=== PATIENT | female | born 1990 | race African-American/Black ===

== ENCOUNTER 2017-01-19 14:59 | Emergency (ER) | payer MEDICAID ==
[2017-01-19] MEDS ORDERED: Sodium Chloride 0.9% 1,000 ML IV ONE (15:30)
--- NOTE | 2017-01-19 15:30 | EDM.PDOC ---
ED HPI GENERAL MEDICAL PROBLEM - General Chief Complaint: Back Pain or Injury Stated Complaint: LOWER BACK PAIN/VOMITING Time Seen by Provider: 01/19/17 15:29 Source of Information: Reports: Patient History Limitations: Reports: No Limitations - History of Present Illness INITIAL COMMENTS - FREE TEXT/NARRATIVE: History of present illness: [26-year-old female comes in complaining of back pain. Indicates that she's had low-grade temperatures at home and it is radiating around to the front. Patient indicates that she has had this sensation in the past when she has had an advanced bladder infection comes to be evaluated today.] Review of systems: As per history of present illness and below otherwise all systems reviewed and negative. Past medical history: As per history of present illness and as reviewed below otherwise noncontributory. Surgical history: As per history of present illness and as reviewed below otherwise noncontributory. Social history: No reported history of drug or alcohol abuse. Family history: As per history of present illness and as reviewed below otherwise noncontributory. Physical exam: HEENT: Atraumatic, normocephalic, pupils reactive, negative for conjunctival pallor or scleral icterus, mucous membranes moist, throat clear, neck supple, nontender, trachea midline. Lungs: Clear to auscultation, breath sounds equal bilaterally, chest nontender. Heart: S1S2, regular, negative for clicks, rubs, or JVD. Abdomen: Soft, nondistended, nontender. Negative for masses or hepatosplenomegaly. Negative for costovertebral tenderness. Pelvis: Stable nontender. Genitourinary: Deferred. Rectal: Deferred. Extremities: Atraumatic, negative for cords or calf pain. Neurovascular unremarkable. Neuro: Awake, alert, oriented. Cranial nerves II through XII unremarkable. Cerebellum unremarkable. Motor and sensory unremarkable throughout. Exam nonfocal. Global assessment is benign save the subjective complaint as noted in history of present illness. Urine is positive and patient requests a more extensive workup secondary to concerns of miscarriage Diagnostics: [UA, CBC, CMP urine hCG] Therapeutics: [Saline lock] Impression: [First trimester with lower pelvic pain] Plan: [Follow-up with DIETARY MANAGER] Definitive disposition and diagnosis as appropriate pending reevaluation and review of above. Low Back Pain Pain Score (Numeric/FACES): 5 - Related Data Allergies Allergy/AdvReac Type Severity Reaction Status Date / Time No Known Allergies Allergy Verified 01/19/17 15:14 Home Meds: Home Meds . [No Known Home Meds] 01/19/17 [History] Past Medical History - Past Health History Medical/Surgical History: Denies Medical/Surgical History Social & Family History - Family History Family Medical History: Noncontributory - Tobacco Use Smoking Status *Q: Current Every Day Smoker Years of Tobacco use: 9 Packs/Tins Daily: 1 - Recreational Drug Use Recreational Drug Use: Yes Drug Use in Last 12 Months: Yes Recreational Drug Type: Reports: Marijuana/Hashish ED ROS GENERAL - Review of Systems Review Of Systems: See Below (See history of present illness) ED EXAM, GENERAL - Physical Exam Exam: See Below (See history of present illness) Course - Vital Signs Last Recorded V/S: Last Vital Signs Temp 36.8 C 01/19/17 17:48 Pulse 88 01/19/17 17:48 Resp 16 01/19/17 17:48 BP 115/68 01/19/17 17:48 Pulse Ox 99 01/19/17 17:48 - Orders/Labs/Meds Orders: Active Orders 24 hr Category Date Time Status OB 1st Tri Sgl 1st Gest [US] Stat Exams 01/19/17 16:16 Taken Labs: Laboratory Tests 01/19/17 01/19/17 01/19/17 Range/Units 15:10 15:10 16:06 WBC 8.71 (4.0-11.0) K/uL RBC 4.60 (4.30-5.90) M/uL Hgb 13.0 (12.0-16.0) g/dL Hct 37.2 (36.0-46.0) % MCV 80.9 (80.0-98.0) fL MCH 28.3 (27.0-32.0) pg MCHC 34.9 (31.0-37.0) g/dL RDW Std Deviation 45.7 (28.0-62.0) fl RDW Coeff of Toya 16 H (11.0-15.0) % Plt Count 308 (150-400) K/uL MPV 8.40 (7.40-12.00) fL Neut % (Auto) 65.7 (48.0-80.0) % Lymph % (Auto) 23.8 (16.0-40.0) % Meagher % (Auto) 8.5 (0.0-15.0) % Eos % (Auto) 1.8 (0.0-7.0) % Baso % (Auto) 0.2 (0.0-1.5) % Neut # (Auto) 5.7 (1.4-5.7) K/uL Lymph # (Auto) 2.1 (0.6-2.4) K/uL Meagher # (Auto) 0.7 (0.0-0.8) K/uL Eos # (Auto) 0.2 (0.0-0.7) K/uL Baso # (Auto) 0.0 (0.0-0.1) K/uL Nucleated RBC % 0.0 /100WBC Nucleated RBCs # 0 K/uL Sodium (136-146) mmol/L Potassium (3.5-5.1) mmol/L Chloride (98-110) mmol/L Carbon Dioxide (21-31) mmol/L BUN (6.0-23.0) mg/dL Creatinine (0.6-1.5) mg/dL Est Cr Clr Drug Dosing mL/min Estimated GFR (MDRD) ml/min Glucose (60-110) mg/dL Calcium (8.8-10.8) mg/dL Total Bilirubin (0.1-1.5) mg/dL AST (5-40) IU/L ALT (8-54) IU/L Alkaline Phosphatase (40-150) Total Protein (6.0-8.0) g/dL Albumin (3.5-5.0) g/dL Globulin (2.0-3.5) g/dL Albumin/Globulin Ratio (1.3-2.8) HCG, Quant mIU/mL Urine Color YELLOW Urine Appearance CLEAR Urine pH 7.0 (5.0-8.0) Ur Specific [place] 1.015 (1.001-1.035) Urine Protein NEGATIVE (NEGATIVE) mg/dL Urine Glucose (UA) NEGATIVE (NEGATIVE) mg/dL Urine Ketones NEGATIVE (NEGATIVE) mg/dL Urine Occult Blood NEGATIVE (NEGATIVE) Urine Nitrite NEGATIVE (NEGATIVE) Urine Bilirubin NEGATIVE (NEGATIVE) Urine Urobilinogen 1.0 (<2.0) EU/dL Ur Leukocyte Esterase TRACE (NEGATIVE) Urine RBC 0-1 (0-2/HPF) Urine WBC 0-2 (0-5/HPF) Ur Epithelial Cells OCCASIONAL (NONE-FEW) Urine Bacteria RARE (NEGATIVE) Urine HCG, Qual POSITIVE (NEGATIVE) Blood Type 01/19/17 01/19/17 01/19/17 Range/Units 16:06 16:06 16:06 WBC (4.0-11.0) K/uL RBC (4.30-5.90) M/uL Hgb (12.0-16.0) g/dL Hct (36.0-46.0) % MCV (80.0-98.0) fL MCH (27.0-32.0) pg MCHC (31.0-37.0) g/dL RDW Std Deviation (28.0-62.0) fl RDW Coeff of Toya (11.0-15.0) % Plt Count (150-400) K/uL MPV (7.40-12.00) fL Neut % (Auto) (48.0-80.0) % Lymph % (Auto) (16.0-40.0) % Meagher % (Auto) (0.0-15.0) % Eos % (Auto) (0.0-7.0) % Baso % (Auto) (0.0-1.5) % Neut # (Auto) (1.4-5.7) K/uL Lymph # (Auto) (0.6-2.4) K/uL Meagher # (Auto) (0.0-0.8) K/uL Eos # (Auto) (0.0-0.7) K/uL Baso # (Auto) (0.0-0.1) K/uL Nucleated RBC % /100WBC Nucleated RBCs # K/uL Sodium 135 L (136-146) mmol/L Potassium 3.9 (3.5-5.1) mmol/L Chloride 104 (98-110) mmol/L Carbon Dioxide 22 (21-31) mmol/L BUN 6 (6.0-23.0) mg/dL Creatinine 0.7 (0.6-1.5) mg/dL Est Cr Clr Drug Dosing 104.24 mL/min Estimated GFR (MDRD) > 60.0 ml/min Glucose 93 (60-110) mg/dL Calcium 9.2 (8.8-10.8) mg/dL Total Bilirubin 0.7 (0.1-1.5) mg/dL AST 12 (5-40) IU/L ALT 10 (8-54) IU/L Alkaline Phosphatase 48 (40-150) Total Protein 6.8 (6.0-8.0) g/dL Albumin 3.7 (3.5-5.0) g/dL Globulin 3.1 (2.0-3.5) g/dL Albumin/Globulin Ratio 1.2 L (1.3-2.8) HCG, Quant 13416.9 mIU/mL Urine Color Urine Appearance Urine pH (5.0-8.0) Ur Specific [place] (1.001-1.035) Urine Protein (NEGATIVE) mg/dL Urine Glucose (UA) (NEGATIVE) mg/dL Urine Ketones (NEGATIVE) mg/dL Urine Occult Blood (NEGATIVE) Urine Nitrite (NEGATIVE) Urine Bilirubin (NEGATIVE) Urine Urobilinogen (<2.0) EU/dL Ur Leukocyte Esterase (NEGATIVE) Urine RBC (0-2/HPF) Urine WBC (0-5/HPF) Ur Epithelial Cells (NONE-FEW) Urine Bacteria (NEGATIVE) Urine HCG, Qual (NEGATIVE) Blood Type A POSITIVE Meds: Medications Discontinued Medications Generic Name Dose Route Start Last Admin Trade Name Jarretq PRN Reason Stop Dose Admin Sodium Chloride 1,000 mls @ 999 mls/hr 01/19/17 15:30 01/19/17 16:09 Normal Saline IV 01/19/17 16:30 999 mls/hr STAT ONE Administration Departure - Departure Time of Disposition: 18:34 Disposition: Home, Self-Care 01 Condition: Good Clinical Impression: Pelvic pain - Discharge Information Referrals: PCP,None [Primary Care Provider] - Forms: ED Department Discharge Additional Instructions: The following information is given to patients seen in the emergency department who are being discharged to home. This information is to outline your options for follow-up care. We provide all patients seen in our emergency department with a follow-up referral. The need for follow-up, as well as the timing and circumstances, are variable depending upon the specifics of your emergency department visit. If you don't have a primary care physician on staff, we will provide you with a referral. We always advise you to contact your personal physician following an emergency department visit to inform them of the circumstance of the visit and for follow-up with them and/or the need for any referrals to a consulting specialist. The emergency department will also refer you to a specialist when appropriate. This referral assures that you have the opportunity for follow-up care with a specialist. All of these measure are taken in an effort to provide you with optimal care, which includes your follow-up. Under all circumstances we always encourage you to contact your private physician who remains a resource for coordinating your care. When calling for follow-up care, please make the office aware that this follow-up is from your recent emergency room visit. If for any reason you are refused follow-up, please contact the [facility] Emergency Department at and asked to speak to the emergency department charge nurse. Follow-up with DIETARY MANAGER Return to ED as needed as discussed [facility] Primary Care - Women's Health [address] [place] [address] - My Orders Last 24 Hours: My Active Orders 01/19/17 16:16 OB 1st Tri Sgl 1st Gest [US] Stat - Assessment/Plan Last 24 Hours: My Active Orders 01/19/17 16:16 OB 1st Tri Sgl 1st Gest [US] Stat
[2017-01-19 16:36] LABS: CHLORIDE,CL 104 mmol/L (98-110); SODIUM,NA 135 mmol/L (136-146)
--- NOTE | 2017-01-20 10:40 | US ---
EXAM DATE: 01/19/17 PATIENT'S AGE: 26 Patient: ADRIANA CHO Facility: [place], [place] Site . Site : 1990 Study: US OB Pelvis [id number] 5:56:07 PM Ordering Physician: Doctor Vaughn Final Report: INDICATION: Pelvic and back pain, unknown LMP. TECHNIQUE: Ultrasound OB pelvis transvaginal. Real-time coello-scale imaging of the pelvis was performed. COMPARISON: None FINDINGS: Sonographic imaging demonstrates a single living intrauterine gestation. The embryo demonstrates a regular cardiac rate measuring 170 beats per minute. The embryo`s crown rump length measurement of 3.3 cm corresponds to a gestational age of 10 weeks 1 day with a sonographic due date of August 16, 2017. Maternal cervical length is 4.4 cm. There is a normal appearing yolk sac. There are no gross abnormalities noted within the embryo at this early state of development. The placenta has not yet developed. The gestational sac has a normal appearance and there is no evidence of a perigestational hemorrhage. The amount of fluid within the sac appears appropriate for gestational age. The cervix is closed. The myometrium appears normal. The ovaries are of normal size. There are no suspicious fluid collections noted in the cul-de-sac. IMPRESSION: Single viable intrauterine with estimated gestational age of 10 weeks 1 day and sonographic due date of August 16, 2017. No abnormalities seen. Dictated by Cristel Michaels MD @ Jan 19 2017 6:13PM (Electronic Signature) Report Signed by Proxy. WM
== END 2017-01-19 18:40 | disposition home or self-care (01) ==
LOC: MW.ED 14:59
DX: O99.89 Other specified diseases and conditions complicating pregnancy, childbirth and the puerperium (principal); R10.2 Pelvic and perineal pain; O99.331 Smoking (tobacco) complicating pregnancy, first trimester; F17.210 Nicotine dependence, cigarettes, uncomplicated; Z3A.10 10 weeks gestation of pregnancy
CPT/HCPCS: 36415; 76801; 80053; 81001; 81025; 84702; 85025; 86900; 86901; 96360; 99284; J7040; 99282

== ENCOUNTER 2017-03-02 11:19 | Emergency (ER) | payer MEDICAID ==
--- NOTE | 2017-03-02 11:25 | EDM.PDOC ---
ED HPI GENERAL MEDICAL PROBLEM - General Stated Complaint: ABD PAIN(16WKS ) Time Seen by Provider: 03/02/17 11:25 Source of Information: Reports: Patient History Limitations: Reports: No Limitations - History of Present Illness INITIAL COMMENTS - FREE TEXT/NARRATIVE: HISTORY AND PHYSICAL: []26-year-old black female who is 16 weeks states that she's been having lower abdominal cramping since last night History of Present Illness: []Patient is a smoker and drinks "a lot of caffeine" She did walk here to several blocks this morning. 2 weeks ago had some spotting. Denies any spotting today is in the room today Review of Systems: As per history of present illness and below otherwise all systems reviewed and negative. Past medical history: As per history of present illness and as reviewed below otherwise noncontributory. Surgical history: As per history of present illness and as reviewed below otherwise noncontributory. Social history: No reported history of drug or alcohol abuse. Family history: As per history of present illness and as reviewed below otherwise noncontributory. Physical exam: Alert and oriented female answering questions appropriately she is not short of breath when speaking. HEENT: Atraumatic, normocehpalic, pupils reactive, negative for conjunctival pallor or scleral icterus, mucous membranes moist, throat clear, neck supple, nontender, trachea midline. Lungs: Clear to auscultation, breath sounds equal bilaterally, chest non tender. Heart: S1S2, regular, negative for clicks, rubs, or JVD. Abdomen: Soft, nontender. Negative for masses or hepatossplenmegaly. Negative for costovertebral tenderness. Pelvis: Stable nontender. Genitourinary: Deferred. Rectal: Deferred Extremities: Atraumatic, negative for cords or calf pain. Neurovascular unremarkable. Neuro: Awake, alert, oriented. Cranial nerves II through XII unremarkable. Cerebellum unremarkable. Motor and sensory unremarkable throughout. Exam nonfocal. Ultrasound report was reviewed and discussed with patient and her . No signs of any separation or bleeding noted. Heart rate 150s on ultrasound. Placenta anterior and low. Diagnostics: [OB ultrasound second trimester] Therapeutics: []Doppler study heart tones 154 Impression: []Intermittent cramping Plan: []Follow-up with your POWER SYSTEMS ENGINEER tomorrow Claire Eisenberg nurse ball thread machine tender [facility] Primary Care - Women's Health [address] [place] [id number] Please states that she was in the emergency department and would need to be evaluated Definitive disposition and diagnosis as appropriate pending reevaluation and review of above. Onset: Gradual Duration: Hour(s): Location: Reports: Pelvis Quality: Reports: Same as Previous Episode Severity: Mild Improves with: Reports: None Worsens with: Reports: None Lower Abdominal Pain Score (Numeric/FACES): 8 - Related Data Allergies Allergy/AdvReac Type Severity Reaction Status Date / Time No Known Allergies Allergy Verified 01/19/17 15:14 Home Meds: Home Meds . [No Known Home Meds] 01/19/17 [History] Past Medical History - Past Health History Medical/Surgical History: Denies Medical/Surgical History Social & Family History - Family History Family Medical History: Noncontributory - Tobacco Use Smoking Status *Q: Current Every Day Smoker Years of Tobacco use: 9 Packs/Tins Daily: 1 - Recreational Drug Use Recreational Drug Use: Yes Drug Use in Last 12 Months: Yes Recreational Drug Type: Reports: Marijuana/Hashish ED ROS GENERAL - Review of Systems Review Of Systems: ROS reveals no pertinent complaints other than HPI. ED EXAM, GI/ABD - Physical Exam Exam: See Below (See dictation) Course - Vital Signs Last Recorded V/S: Last Vital Signs Temp 36.2 C 03/02/17 11:28 Pulse 130 H 03/02/17 11:28 Resp 20 03/02/17 11:28 BP 154/90 H 03/02/17 11:28 Pulse Ox 96 03/02/17 11:28 - Orders/Labs/Meds Orders: Active Orders 24 hr Category Date Time Status OB 2 Or 3 Tri Sgl 1st Gest [US] Stat Exams 03/02/17 11:38 Taken CULTURE URINE [RM] Stat Lab 03/02/17 11:37 Received Labs: Laboratory Tests 03/02/17 Range/Units 11:37 Urine Color YELLOW Urine Appearance CLEAR Urine pH 6.0 (5.0-8.0) Ur Specific [place] 1.015 (1.001-1.035) Urine Protein NEGATIVE (NEGATIVE) mg/dL Urine Glucose (UA) NEGATIVE (NEGATIVE) mg/dL Urine Ketones NEGATIVE (NEGATIVE) mg/dL Urine Occult Blood NEGATIVE (NEGATIVE) Urine Nitrite NEGATIVE (NEGATIVE) Urine Bilirubin NEGATIVE (NEGATIVE) Urine Urobilinogen 0.2 (<2.0) EU/dL Ur Leukocyte Esterase MODERATE (NEGATIVE) Urine RBC NONE SEEN (0-2/HPF) Urine WBC 4-8 (0-5/HPF) Ur Epithelial Cells 2-4 (NONE-FEW) Urine Bacteria FEW (NEGATIVE) Urine Mucus MODERATE (NONE-MOD) Departure - Departure Time of Disposition: 12:40 Disposition: Home, Self-Care 01 Condition: Good Clinical Impression: Abdominal cramping - Discharge Information Referrals: PCP,None [Primary Care Provider] - Additional Instructions: The following information is given to patients seen in the emergency department who are being discharged to home. This information is to outline your options for follow-up care. We provide all patients seen in our emergency department with a follow-up referral. The need for follow-up, as well as the timing and circumstances, are variable depending upon the specifics of your emergency department visit. If you don't have a primary care physician on staff, we will provide you with a referral. We always advise you to contact your personal physician following an emergency department visit to inform them of the circumstance of the visit and for follow-up with them and/or the need for any referrals to a consulting specialist. The emergency department will also refer you to a specialist when appropriate. This referral assures that you have the opportunity for followup care with a specialist. All of these measure are taken in an effort to provide you with optimal care, which includes your followup. Under all circumstances we always encourage you to contact your private physician who remains a resource for coordinating your care. When calling for followup care, please make the office aware that this follow-up is from your recent emergency room visit. If for any reason you are refused follow-up, please contact the [facility] emergency department at and asked to speak to the emergency department charge nurse. Follow-up with Mallorie Eisenberg nurse ball thread machine tender tomorrow [facility] Primary Care - Women's Health [address] [place] [phone] call for an appointment - My Orders Last 24 Hours: My Active Orders 03/02/17 11:37 CULTURE URINE [RM] Stat 03/02/17 11:38 OB 2 Or 3 Tri Sgl 1st Gest [US] Stat - Assessment/Plan Last 24 Hours: My Active Orders 03/02/17 11:37 CULTURE URINE [RM] Stat 03/02/17 11:38 OB 2 Or 3 Tri Sgl 1st Gest [US] Stat
--- NOTE | 2017-03-03 16:31 | US ---
EXAM DATE: 03/02/17 PATIENT'S AGE: 26 Patient: ADRIANA CHO Facility: [place], [place] Site . Site : 1990 Study: US OB Pelvis [id number] 12:05:19 PM Ordering Physician: Doctor Vaughn Final Report: Indication: Abdominal pain. Findings: Single live intrauterine gestation is noted with an estimated weight of 146 g based on a biparietal diameter of 3.4 cm, head circumference of 12.2 cm, abdominal circumference of 10.1 cm and femur length of 2.1 cm. cardiac activity is noted at 150 beats per minute. The placenta is anterior and low lying. The leading edge of the placenta to the cervix was not measured. The cervical length is 3.7 cm. Impression: Single live intrauterine gestation with low lying anterior placenta. Dictated by Cristel Acevedo MD @ Mar 02 2017 12:28PM (Electronic Signature) Report Signed by Proxy. WM
== END 2017-03-02 12:48 | disposition home or self-care (01) ==
LOC: MW.ED 11:19
DX: O99.89 Other specified diseases and conditions complicating pregnancy, childbirth and the puerperium (principal); R10.30 Lower abdominal pain, unspecified; O99.332 Smoking (tobacco) complicating pregnancy, second trimester; F17.210 Nicotine dependence, cigarettes, uncomplicated; Z3A.16 16 weeks gestation of pregnancy
CPT/HCPCS: 76805; 76805-26; 81001; 87086; 99284; 99284-25

== ENCOUNTER 2017-07-07 12:02 | Emergency (ER) | payer MEDICAID ==
[2017-07-07] MEDS ORDERED: Sodium Chloride 0.9% 1,000 ML IV ONE (12:16)
--- NOTE | 2017-07-07 12:17 | EDM.PDOC ---
ED HPI GENERAL MEDICAL PROBLEM - General Chief Complaint: General Stated Complaint: WEEK SPELL(33 WKS ) Time Seen by Provider: 07/07/17 12:03 Source of Information: Reports: Patient History Limitations: Reports: No Limitations - History of Present Illness INITIAL COMMENTS - FREE TEXT/NARRATIVE: HISTORY AND PHYSICAL: History of present illness: Patient is a 26-year-old female who presents to the emergency room with complaints of feeling weak, nauseated and near syncopal. She states that she has had these symptoms for several months during this , currently 33 weeks . She reports she has told her primary care/OBGYN of her complaints and concerns and was encouraged to increase the frequency of her meals and that they should be high in protein. Patient states she has made these changes to her diet is still has intermittent episodes of this. She denies any fever, chills, chest pain or shortness of breath. Denies any abdominal pain, cramping, vaginal bleeding, diarrhea or constipation. Reports she is eating and drinking appropriately. Falls, trauma or injuries. G 3, P2, Primary OBGYN is Claire Acevedo. Reports her previous appointments have been normal. Review of systems: As per history of present illness and below otherwise all systems reviewed and negative. Past medical history: As per history of present illness and as reviewed below otherwise noncontributory. Surgical history: As per history of present illness and as reviewed below otherwise noncontributory. Social history: No reported history of drug or alcohol abuse. Family history: As per history of present illness and as reviewed below otherwise noncontributory. Physical exam: General: Developed and well-nourished 26-year-old -[place]ian female. Alert and oriented. Nontoxic appearing and in no acute distress. HEENT: Atraumatic, normocephalic, pupils equal and reactive bilaterally, negative for conjunctival pallor or scleral icterus, mucous membranes moist, throat clear, neck supple, nontender, trachea midline. No drooling or trismus noted. No meningeal signs Lungs: Clear to auscultation, breath sounds equal bilaterally, chest nontender. Heart: S1S2, regular rate and rhythm without overt murmur Abdomen: Soft, nondistended, 33 weeks , nontender. Negative for masses or hepatosplenomegaly. Negative for costovertebral tenderness. Pelvis: Stable nontender. Genitourinary: Deferred. Rectal: Deferred. Skin: Intact, warm, dry. No lesions or rashes noted. Extremities: Atraumatic, negative for cords or calf pain. Neurovascular unremarkable. Neuro: Awake, alert, oriented. Cranial nerves II through XII unremarkable. Cerebellum unremarkable. Motor and sensory unremarkable throughout. Exam nonfocal. Notes: OB is down here to perform an NST. Claire Acevedo, Research Pharmacist, was informed of patients arrival - patients primary OB. 1240: NST was completed, reactive at this time with FHT of 140, moderate variability. She is cleared from OB per Claire Acevedo/Clay Lisa RN, OB. Labs are within normal limits. EKG is normal. VSS. She states she feels improvement. She will follow up with her PCP.Denies any further questions or concerns at this time. Diagnostics: CBC, CMP, UA, EKG, OB evaluation Therapeutics: Normal saline Impression: Third trimester Near Syncope Plan: 1. Drink plenty of fluids throughout the day. Avoid caffeinated products. Eat frequent small meals throughout the day. 2. Take frequent breaks throughout the day. Avoid over strenuous activity. 3. Follow up with your OBGYN as you have scheduled, or within the next 1-2 days. Return to the ED as needed and as discussed. Definitive disposition and diagnosis as appropriate pending reevaluation and review of above. Duration: Week(s): - Related Data Allergies Allergy/AdvReac Type Severity Reaction Status Date / Time No Known Allergies Allergy Verified 01/19/17 15:14 Home Meds: Home Meds . 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 Social & Family History - Family History Family Medical History: Noncontributory - Tobacco Use Smoking Status *Q: Current Every Day Smoker Years of Tobacco use: 9 Packs/Tins Daily: 1 - Caffeine Use Caffeine Use: Reports: None, Soda - Recreational Drug Use Recreational Drug Use: Yes Drug Use in Last 12 Months: Yes Recreational Drug Type: Reports: Marijuana/Hashish ED ROS GENERAL - Review of Systems Review Of Systems: ROS reveals no pertinent complaints other than HPI. ED EXAM, GENERAL - Physical Exam Exam: See Below (See dictation) EKG INTERPRETATION EKG Date: 07/07/17 Time: 12:26 Rhythm: NSR Rate (Beats/Min): 98 [place]: Normal Comparison: NA - No Prior EKG Course - Vital Signs Last Recorded V/S: Last Vital Signs Temp 98.4 F 07/07/17 14:11 Pulse 86 07/07/17 14:11 Resp 18 07/07/17 14:11 BP 117/76 07/07/17 14:11 Pulse Ox 99 07/07/17 14:11 - Orders/Labs/Meds Orders: Active Orders 24 hr Category Date Time Status EKG Documentation Completion [RC] STAT Care 07/07/17 12:16 Active Non Stress Test [RC] PER UNIT ROUTINE Care 07/07/17 12:36 Active CULTURE URINE [RM] Stat Lab 07/07/17 13:30 Received UA W/MICROSCOPIC [URIN] Stat Lab 07/07/17 13:30 Ordered Labs: Laboratory Tests 07/07/17 07/07/17 07/07/17 Range/Units 12:25 12:25 13:30 WBC 10.81 (4.0-11.0) K/uL RBC 4.14 L (4.30-5.90) M/uL Hgb 11.6 L (12.0-16.0) g/dL Hct 34.2 L (36.0-46.0) % MCV 82.6 (80.0-98.0) fL MCH 28.0 (27.0-32.0) pg MCHC 33.9 (31.0-37.0) g/dL RDW Std Deviation 40.7 (28.0-62.0) fl RDW Coeff of Toya 14 (11.0-15.0) % Plt Count 285 (150-400) K/uL MPV 8.70 (7.40-12.00) fL Neut % (Auto) 71.8 (48.0-80.0) % Lymph % (Auto) 17.3 (16.0-40.0) % [place] % (Auto) 9.7 (0.0-15.0) % Eos % (Auto) 1.0 (0.0-7.0) % Baso % (Auto) 0.2 (0.0-1.5) % Neut # (Auto) 7.8 H (1.4-5.7) K/uL Lymph # (Auto) 1.9 (0.6-2.4) K/uL [place] # (Auto) 1.1 H (0.0-0.8) K/uL Eos # (Auto) 0.1 (0.0-0.7) K/uL Baso # (Auto) 0.0 (0.0-0.1) K/uL Nucleated RBC % 0.0 /100WBC Nucleated RBCs # 0 K/uL Sodium 138 (136-145) mmol/L Potassium 3.8 (3.5-5.1) mmol/L Chloride 106 (98-107) mmol/L Carbon Dioxide 22.6 (21.0-32.0) mmol/L BUN 5 L (7.0-18.0) mg/dL Creatinine 0.6 (0.6-1.0) mg/dL Est Cr Clr Drug Dosing TNP Estimated GFR (MDRD) > 60.0 ml/min Glucose 83 (74-106) mg/dL Calcium 8.7 (8.5-10.1) mg/dL Total Bilirubin 0.2 (0.2-1.0) mg/dL AST 14 L (15-37) IU/L ALT 15 (14-63) IU/L Alkaline Phosphatase 86 (46-116) U/L Total Protein 6.7 (6.4-8.2) g/dL Albumin 2.6 L (3.4-5.0) g/dL Globulin 4.1 H (2.0-3.5) g/dL Albumin/Globulin Ratio 0.6 L (1.3-2.8) Urine Color YELLOW Urine Appearance CLEAR Urine pH 7.0 (5.0-8.0) Ur Specific [place] 1.010 (1.001-1.035) Urine Protein NEGATIVE (NEGATIVE) mg/dL Urine Glucose (UA) NEGATIVE (NEGATIVE) mg/dL Urine Ketones NEGATIVE (NEGATIVE) mg/dL Urine Occult Blood NEGATIVE (NEGATIVE) Urine Nitrite NEGATIVE (NEGATIVE) Urine Bilirubin NEGATIVE (NEGATIVE) Urine Urobilinogen 0.2 (<2.0) EU/dL Ur Leukocyte Esterase TRACE (NEGATIVE) Urine RBC 0-1 (0-2/HPF) Urine WBC 0-2 (0-5/HPF) Ur Epithelial Cells FEW (NONE-FEW) Urine Bacteria FEW (NEGATIVE) Meds: Medications Discontinued Medications Generic Name Dose Route Start Last Admin Trade Name Bang PRN Reason Stop Dose Admin Sodium Chloride 1,000 mls @ 999 mls/hr 07/07/17 12:16 07/07/17 12:28 Normal Saline IV 07/07/17 13:16 999 mls/hr STAT ONE Administration Ondansetron HCl 4 mg 07/07/17 13:57 07/07/17 14:05 Zofran IVPUSH 07/07/17 13:58 4 mg ONETIME ONE Administration Departure - Departure Time of Disposition: 14:00 Disposition: Home, Self-Care 01 Clinical Impression: Third trimester at less than 36 weeks, Near syncope - Discharge Information Instructions: Near-Syncope, [id number] Referrals: PCP,None [Primary Care Provider] - Forms: ED Department Discharge Additional Instructions: The following information is given to patients seen in the emergency department who are being discharged to home. This information is to outline your options for follow-up care. We provide all patients seen in our emergency department with a follow-up referral. The need for follow-up, as well as the timing and circumstances, are variable depending upon the specifics of your emergency department visit. If you don't have a primary care physician on staff, we will provide you with a referral. We always advise you to contact your personal physician following an emergency department visit to inform them of the circumstance of the visit and for follow-up with them and/or the need for any referrals to a consulting specialist. The emergency department will also refer you to a specialist when appropriate. This referral assures that you have the opportunity for follow-up care with a specialist. All of these measure are taken in an effort to provide you with optimal care, which includes your follow-up. Under all circumstances we always encourage you to contact your private physician who remains a resource for coordinating your care. When calling for follow-up care, please make the office aware that this follow-up is from your recent emergency room visit. If for any reason you are refused follow-up, please contact the [facility] Emergency Department at and asked to speak to the emergency department charge nurse. [facility] Claire Acevedo - OBGYN Research Pharmacist [address] [place] [id number] 1. Drink plenty of fluids throughout the day. Avoid caffeinated products. Eat frequent small meals throughout the day. 2. Take frequent breaks throughout the day. Avoid over strenuous activity. 3. Follow up with your OBGYN as you have scheduled, or within the next 1-2 days. Return to the ED as needed and as discussed. - My Orders Last 24 Hours: My Active Orders 07/07/17 12:16 EKG Documentation Completion [RC] STAT 07/07/17 13:30 CULTURE URINE [RM] Stat UA W/MICROSCOPIC [URIN] Stat - Assessment/Plan Last 24 Hours: My Active Orders 07/07/17 12:16 EKG Documentation Completion [RC] STAT 07/07/17 13:30 CULTURE URINE [RM] Stat UA W/MICROSCOPIC [URIN] Stat
[2017-07-07 13:04] LABS: CHLORIDE,CL 106 mmol/L (98-107); SODIUM,NA 138 mmol/L (136-145)
[2017-07-07] MEDS ORDERED: Ondansetron 4 MG/2 ML SDV IVPUSH ONE (13:57)
== END 2017-07-07 14:25 | disposition home or self-care (01) ==
LOC: MW.ED 12:02
DX: O99.89 Other specified diseases and conditions complicating pregnancy, childbirth and the puerperium (principal); R55 Syncope and collapse; O99.333 Smoking (tobacco) complicating pregnancy, third trimester; F17.210 Nicotine dependence, cigarettes, uncomplicated; Z3A.33 33 weeks gestation of pregnancy
CPT/HCPCS: 59025; 80053; 81001; 85025; 87086; 93005; 96361; 96374; 99284; J2405; J7040

== ENCOUNTER 2017-08-09 05:13 | Inpatient (IN) | payer MEDICAID ==
[2017-08-09] MEDS ORDERED: Sodium Chloride 0.9% 2.5 ML Syringe FLUSH PRN (05:34)
[2017-08-09] MEDS ORDERED: Nalbuphine 10 MG/1 ML Vial IVPUSH PRN (05:34)
[2017-08-09] MEDS ORDERED: Misoprostol 200 MCG Tab PO PRN (05:34)
[2017-08-09] MEDS ORDERED: Water For Irrigation,Sterile 1,000 ML Container IRR PRN (05:34)
[2017-08-09] MEDS ORDERED: Lidocaine 1% 50 ML MDV INJECT PRN (05:34)
[2017-08-09] MEDS ORDERED: Sodium Chloride 0.9% 10 ML Syringe FLUSH PRN (05:34)
[2017-08-09] MEDS ORDERED: Tranexamic Acid 1,000 MG in Sodium Chloride 0.9% 100 ML IV PRN (05:34)
[2017-08-09] MEDS ORDERED: Methylergonovine 0.2 MG/1 ML Amp IM PRN (05:34)
[2017-08-09] MEDS ORDERED: Carboprost Tromethamine 250 MCG/1 ML Amp IM PRN (05:34)
[2017-08-09] MEDS ORDERED: Terbutaline 1 MG/ML SDV SUBCUT PRN (05:38)
[2017-08-09] MEDS ORDERED: Oxytocin/0.9 % Sodium Chloride 30 UNIT/500 ML BAG IV SCH ×2 (05:45)
[2017-08-09] MEDS: Lactated Ringers 1,000 ML IV SCH ×2 (06:30→12:49)
[2017-08-09] MEDS ORDERED: Nalbuphine 10 MG/ML 10 ML MDV IVPUSH PRN (08:09)
--- NOTE | 2017-08-09 10:01 | PCM.LDHP ---
L&D History of Present Illness - General Date of Service: 08/09/17 Admit Problem/Dx: Patient Status Order with Admit Dx/Problem 08/09/17 05:35 Patient Status [ADT] Routine Admission Diagnosis/Problem Admission Diagnosis/Problem - planned 08/09/17 09:56 26 yo WED 08/16/2017 39 0/7wks. A+, R-equivocal, GBS neg. Elective IOL. Source of Information: Patient History Limitations: Reports: No Limitations - History of Present Illness Improves with: Reports: None Worsens with: Reports: None Associated Symptoms: Reports: N - Related Data Allergies/Adverse Reactions: Allergies Allergy/AdvReac Type Severity Reaction Status Date / Time No Known Allergies Allergy Verified 07/12/17 23:36 Home Medications: Home Meds FLUoxetine [PROzac] 1 tab PO DAILY 07/12/17 [History] Ondansetron HCl [Zofran] 1 tab PO Q6H PRN 07/12/17 [History] Vit W-Ca,Fe,FA(<1 mg) [ Vitamins] 1 tab PO DAILY 07/12/17 [ History] Past Medical History - Past Health History Medical/Surgical History: Denies 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 Social & Family History - Family History Family Medical History: Noncontributory - Tobacco Use Smoking Status *Q: Current Every Day Smoker Years of Tobacco use: 10 Packs/Tins Daily: 2 Second Hand Smoke Exposure: Yes - Caffeine Use Caffeine Use: Reports: None - Recreational Drug Use Recreational Drug Use: No H&P Review of Systems - Review of Systems: Review Of Systems: See Below General: Reports: No Symptoms HEENT: Reports: No Symptoms Pulmonary: Reports: No Symptoms Cardiovascular: Reports: No Symptoms Gastrointestinal: Reports: No Symptoms Genitourinary: Reports: No Symptoms Musculoskeletal: Reports: No Symptoms Skin: Reports: No Symptoms Psychiatric: Reports: No Symptoms Neurological: Reports: No Symptoms Hematologic/Lymphatic: Reports: No Symptoms Immunologic: Reports: No Symptoms L&D Exam - Exam Exam: See Below - Vital Signs Weight: 92.986 kg - OB Specific Contraction Intensity: Mild to Moderate Movement: Active Heart Tones: Present Heart Tones per Min: 130 Heart Rate (FHR) Variability: Moderate (6-25 bmp) Presentation: Vertex Estimated Weight: 3400 - Morales Score Morales Score Cervix Position: Posterior Morales Score Consistency: Soft Morales Score Effacement: 51-70% Morales Score Dilation: 3-4 cm Morales Score 's Station: -2 Morales Score Total: 7 - Exam General: Alert, Oriented HEENT: Hearing Intact Lungs: Normal Respiratory Effort GI/Abdominal Exam: Soft, Non-Tender Rectal Exam: Deferred Genitourinary: Normal external exam, Normal bimanual exam, Cervical dilitation Back Exam: Normal Inspection, Full Range of Motion Extremities: Normal Inspection, Normal Range of Motion, Non-Tender, No Pedal Edema, Normal Capillary Refill Skin: Warm, Dry, Intact Neurological: Cranial Nerves Intact, Reflexes Equal Bilateral, Strength Equal Bilateral, Normal Speech, Normal Tone Psychiatric: Alert, Normal Affect, Normal Mood - Patient Data Lab Results Last 24 hrs: Laboratory Results - last 24 hr 08/09/17 08/09/17 Range/Units 05:56 05:56 WBC 11.61 H (4.0-11.0) K/uL RBC 4.07 L (4.30-5.90) M/uL Hgb 11.2 L (12.0-16.0) g/dL Hct 33.1 L (36.0-46.0) % MCV 81.3 (80.0-98.0) fL MCH 27.5 (27.0-32.0) pg MCHC 33.8 (31.0-37.0) g/dL RDW Std Deviation 41.3 (28.0-62.0) fl RDW Coeff of Toya 14 (11.0-15.0) % Plt Count 297 (150-400) K/uL MPV 8.90 (7.40-12.00) fL Nucleated RBC % 0.0 /100WBC Nucleated RBCs # 0 K/uL Blood Type A POSITIVE Antibody Screen NEGATIVE Result Diagrams: 08/09/17 05:56 - Problem List (1) Supervision of normal IUP (intrauterine ) in multigravida SNOMED Code(s): 512825937, 025320611, 303060156 ICD Code: Z34.80 - ENCOUNTER FOR SUPRVSN OF NORMAL , UNSP TRIMESTER Status: Acute Priority: High Current Visit: Yes Qualifiers: Trimester: third trimester Qualified Code(s): Z34.83 - Encounter for supervision of other normal , third trimester Problem List Initiated/Reviewed/Updated: Yes Orders Last 24hrs: Active Orders 24 hr Category Date Time Status Patient Status [ADT] Routine ADT 08/09/17 05:35 Active Bedrest Bathroom Privileges [RC] ASDIRECTED Care 08/09/17 05:38 Active Communication Order [RC] ASDIRECTED Care 08/09/17 05:38 Active Communication Order [RC] ASDIRECTED Care 08/09/17 05:38 Active Communication Order [RC] ASDIRECTED Care 08/09/17 05:38 Active Heart Tones [RC] CONTINUOUS Care 08/09/17 05:35 Active Non Stress Test [RC] PER UNIT ROUTINE Care 08/09/17 05:35 Active May Shower [RC] ASDIRECTED Care 08/09/17 05:35 Active Notify Provider [RC] PRN Care 08/09/17 05:35 Active Notify Provider [RC] PRN Care 08/09/17 05:38 Active Notify Provider [RC] PRN Care 08/09/17 05:38 Active Notify Provider [RC] STAT Care 08/09/17 05:38 Active Oxygen Therapy [RC] ASDIRECTED Care 08/09/17 05:38 Active Up ad Saima [RC] ASDIRECTED Care 08/09/17 05:35 Active Vaginal Exam [RC] PRN Care 08/09/17 05:35 Active Vital Signs [RC] PER UNIT ROUTINE Care 08/09/17 05:35 Active Regular Diet [DIET] Diet 08/09/17 Breakfast Active Carboprost Tromethamine [Hemabate DS] Med 08/09/17 05:34 Active 250 mcg IM ASDIRECTED PRN Lactated Ringers [Ringers, Lactated] 1,000 ml Med 08/09/17 05:45 Active IV ASDIRECTED Lidocaine 1% [Xylocaine 1%] Med 08/09/17 05:34 Active 50 ml INJECT .ONCE PRN Methylergonovine [Methergine] Med 08/09/17 05:34 Active 0.2 mg IM ASDIRECTED PRN Misoprostol [Cytotec] Med 08/09/17 05:34 Active 200 mcg PO .ONCE PRN Nalbuphine [Nubain] Med 08/09/17 08:09 Active 10 mg IVPUSH Q1H PRN Oxytocin/0.9 % Sodium Chloride [Oxytocin 30 Unit/500 ML Med 08/09/17 05:45 Active -NS] 30 unit in 500 ml IV TITRATE Oxytocin/0.9 % Sodium Chloride [Oxytocin 30 Unit/500 ML Med 08/09/17 05:45 Active -NS] 30 unit in 500 ml IV TITRATE Sodium Chloride 0.9% [Saline Flush] Med 08/09/17 05:34 Active 10 ml FLUSH ASDIRECTED PRN Sodium Chloride 0.9% [Saline Flush] Med 08/09/17 05:34 Active 2.5 ml FLUSH ASDIRECTED PRN Terbutaline [Brethine] Med 08/09/17 05:38 Active 0.25 mg SUBCUT ASDIRECTED PRN Tranexamic Acid [Cyklokapron] 1,000 mg Med 08/09/17 05:34 Active Sodium Chloride 0.9% [Normal Saline] 100 ml IV ONETIME Water For Irrigation,Sterile [Sterile Water for Med 08/09/17 05:34 Active Irrigation] 1,000 ml IRR ASDIRECTED PRN Scalp Electrode [WOMSER] Per Unit Routine Oth 08/09/17 05:35 Ordered Medication Administration Instruction [OM.PC] Q3H Oth 08/09/17 05:45 Ordered Peripheral IV Insertion Adult [OM.PC] Routine Oth 08/09/17 05:35 Ordered Resuscitation Status Routine Resus Stat 08/09/17 05:34 Ordered Medication Orders Carboprost Tromethamine (Hemabate Ds) 250 mcg IM ASDIRECTED PRN PRN Reason: Post Hemorrhage Lactated Ringer's (Ringers, Lactated) 1,000 mls @ 150 mls/hr IV ASDIRECTED TRACY Last Admin: 08/09/17 06:30 Dose: 150 mls/hr Oxytocin/Sodium Chloride (Oxytocin 30 Unit/500 Ml-Ns) 30 unit in 500 mls @ 999 mls/hr IV TITRATE TRACY Tranexamic Acid 1,000 mg/ (Sodium Chloride) 110 mls @ 660 mls/hr IV ONETIME PRN PRN Reason: Bleeding Oxytocin/Sodium Chloride (Oxytocin 30 Unit/500 Ml-Ns) 30 unit in 500 mls @ 2 mls/hr IV TITRATE TRACY; Protocol Last Titration: 08/09/17 09:47 Dose: 12 munits/min, 12 mls/hr Titration: 08/09/17 08:53 Dose: 10 munits/min, 10 mls/hr Titration: 08/09/17 08:23 Dose: 8 munits/min, 8 mls/hr Titration: 08/09/17 08:02 Dose: 6 munits/min, 6 mls/hr Titration: 08/09/17 07:39 Dose: 4 munits/min, 4 mls/hr Admin: 08/09/17 06:33 Dose: 2 munits/min, 2 mls/hr Lidocaine HCl (Xylocaine 1%) 50 ml INJECT .ONCE PRN PRN Reason: Laceration repair Methylergonovine Maleate (Methergine) 0.2 mg IM ASDIRECTED PRN PRN Reason: Post Hemorrhage Misoprostol (Cytotec) 200 mcg PO .ONCE PRN PRN Reason: Post Hemorrhage Nalbuphine HCl (Nubain) 10 mg IVPUSH Q1H PRN PRN Reason: Pain (severe 7-10) Sodium Chloride (Saline Flush) 10 ml FLUSH ASDIRECTED PRN PRN Reason: Keep Vein Open Sodium Chloride (Saline Flush) 2.5 ml FLUSH ASDIRECTED PRN PRN Reason: Keep Vein Open Sterile Water (Sterile Water For Irrigation) 1,000 ml IRR ASDIRECTED PRN PRN Reason: delivery Terbutaline Sulfate (Brethine) 0.25 mg SUBCUT ASDIRECTED PRN PRN Reason: Tacysystole Assessment/Plan Comment:: IOL A: 26 yo Thu08/16/2017 39 0/7wks. A+, R-equivocal, GBS neg. Elective IOL. P: Admit, pitocin, Epidural prn, anticipate . Dr Hairston updated.
[2017-08-09] MEDS ORDERED: Ondansetron 4 MG/2 ML SDV IVPUSH PRN (13:54)
[2017-08-09] MEDS ORDERED: Misoprostol 25 MCG (1/4 of 100 MCG) Tab PO ONE (14:30)
[2017-08-09] MEDS ORDERED: Misoprostol 25 MCG (1/4 of 100 MCG) Tab VAG ONE (14:30)
[2017-08-09] MEDS ORDERED: Misoprostol 25 MCG (1/4 of 100 MCG) Tab PO PRN (16:40)
[2017-08-09] MEDS ORDERED: Misoprostol 25 MCG (1/4 of 100 MCG) Tab VAG PRN (16:43)
[2017-08-10] MEDS: Lactated Ringers 1,000 ML IV SCH ×3 (04:15→10:58)
[2017-08-10] MEDS ORDERED: fentaNYL 100 MCG/2 ML SDV ONE (09:30)
[2017-08-10] MEDS ORDERED: Phenylephrine 1% 10 MG/ML SDV ONE (10:23)
--- NOTE | 2017-08-10 10:27 | PCM.PREANE ---
Preanesthetic Assessment - Anesthesia/Transfusion/Family Hx Anesthesia History: Prior Anesthesia Without Reaction (last epidural pt states took 2 attempts - no GA) Family History of Anesthesia Reaction: No Transfusion History: No Prior Transfusion(s) Intubation History: Unknown - Review of Systems General: No Symptoms Pulmonary: No Symptoms Cardiovascular: No Symptoms Gastrointestinal: No Symptoms Neurological: No Symptoms Other: Reports: Anxiety - Physical Assessment NPO Status Date: 08/10/17 NPO Status Time: 10:20 (sips/chips) Pulse: 105 Blood Pressure: 140/90 Height: 5 ft 5 in Weight: 205 lb ASA Class: 2 Mental Status: Alert & Oriented x3 Airway Class: Mallampati = 2 Dentition: Reports: Broken Tooth/Teeth Thyro-Mental Finger Breadths: 3 Mouth Opening Finger Breadths: 3 ROM/Head Extension: Full Lungs: Clear to Auscultation, Normal Respiratory Effort Cardiovascular: Regular Rate, Regular Rhythm, Tachycardia (slighty) - Lab Values: Laboratory Last Values WBC 11.61 K/uL (4.0-11.0) H 08/09/17 05:56 RBC 4.07 M/uL (4.30-5.90) L 08/09/17 05:56 Hgb 11.2 g/dL (12.0-16.0) L 08/09/17 05:56 Hct 33.1 % (36.0-46.0) L 08/09/17 05:56 MCV 81.3 fL (80.0-98.0) 08/09/17 05:56 MCH 27.5 pg (27.0-32.0) 08/09/17 05:56 MCHC 33.8 g/dL (31.0-37.0) 08/09/17 05:56 RDW Std Deviation 41.3 fl (28.0-62.0) 08/09/17 05:56 RDW Coeff of Toya 14 % (11.0-15.0) 08/09/17 05:56 Plt Count 297 K/uL (150-400) 08/09/17 05:56 MPV 8.90 fL (7.40-12.00) 08/09/17 05:56 Nucleated RBC % 0.0 /100WBC 08/09/17 05:56 Nucleated RBCs # 0 K/uL 08/09/17 05:56 Blood Type A POSITIVE 08/09/17 05:56 Antibody Screen NEGATIVE 08/09/17 05:56 - Allergies Allergies/Adverse Reactions: Allergies Allergy/AdvReac Type Severity Reaction Status Date / Time No Known Allergies Allergy Verified 07/12/17 23:36 - Blood Blood Available: No Product(s) Available: None - Anesthesia Plan Free Text/Narrative:: Labor Epidural - pt has not progressed into active labor despite 24 hrs of induction - plan to rupture pt, but pt cannot tolerate vaginal exams. S. Eisenberg and pt agreeable to getting epidural, then rupturing. Pt does have high anxiety. 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 - SUBSTANCE USE Smoking Status *Q: Current Every Day Smoker Tobacco Use Within Last Twelve Months: Cigars Second Hand Smoke Exposure: Yes Recreational Drug Use History: No - HOME MEDS Home Medications: Home Meds FLUoxetine [PROzac] 1 tab PO DAILY 07/12/17 [History] Ondansetron HCl [Zofran] 1 tab PO Q6H PRN 07/12/17 [History] Vit W-Ca,Fe,FA(<1 mg) [ Vitamins] 1 tab PO DAILY 07/12/17 [ History] - CURRENT (IN HOUSE) MEDS Current Meds: Current Medications Carboprost Tromethamine (Hemabate Ds) 250 mcg IM ASDIRECTED PRN PRN Reason: Post Hemorrhage Lactated Ringer's (Ringers, Lactated) 1,000 mls @ 150 mls/hr IV ASDIRECTED TRACY Last Admin: 08/10/17 09:33 Dose: 150 mls/hr Oxytocin/Sodium Chloride (Oxytocin 30 Unit/500 Ml-Ns) 30 unit in 500 mls @ 999 mls/hr IV TITRATE TRACY Tranexamic Acid 1,000 mg/ (Sodium Chloride) 110 mls @ 660 mls/hr IV ONETIME PRN PRN Reason: Bleeding Oxytocin/Sodium Chloride (Oxytocin 30 Unit/500 Ml-Ns) 30 unit in 500 mls @ 2 mls/hr IV TITRATE TRACY; Protocol Last Titration: 08/10/17 05:51 Dose: 0 munits/min, 0 mls/hr Lidocaine HCl (Xylocaine 1%) 50 ml INJECT .ONCE PRN PRN Reason: Laceration repair Methylergonovine Maleate (Methergine) 0.2 mg IM ASDIRECTED PRN PRN Reason: Post Hemorrhage Misoprostol (Cytotec) 200 mcg PO .ONCE PRN PRN Reason: Post Hemorrhage Misoprostol (Cytotec) 25 mcg PO Q4H PRN PRN Reason: cervical ripening Last Admin: 08/09/17 18:36 Dose: 25 mcg Misoprostol (Cytotec) 25 mcg VAG Q4H PRN PRN Reason: cervical ripening Last Admin: 08/09/17 18:38 Dose: 25 mcg Nalbuphine HCl (Nubain) 10 mg IVPUSH Q1H PRN PRN Reason: Pain (severe 7-10) Last Admin: 08/09/17 12:21 Dose: 10 mg Ondansetron HCl (Zofran) 4 mg IVPUSH Q4H PRN PRN Reason: Nausea Last Admin: 08/09/17 14:06 Dose: 4 mg Sodium Chloride (Saline Flush) 10 ml FLUSH ASDIRECTED PRN PRN Reason: Keep Vein Open Sodium Chloride (Saline Flush) 2.5 ml FLUSH ASDIRECTED PRN PRN Reason: Keep Vein Open Sterile Water (Sterile Water For Irrigation) 1,000 ml IRR ASDIRECTED PRN PRN Reason: delivery Terbutaline Sulfate (Brethine) 0.25 mg SUBCUT ASDIRECTED PRN PRN Reason: Tacysystole Discontinued Medications Fentanyl (Sublimaze) Confirm Administered Dose 100 mcg .ROUTE .STK-MED ONE Stop: 08/10/17 09:31 Fentanyl/Bupivacaine HCl ([id number] 2 Mcg/Ml-0.125%) Confirm Administered Dose 100 mls @ as directed EP .STK-MED ONE Stop: 08/10/17 09:31 Misoprostol (Cytotec) 25 mcg PO ONETIME ONE Stop: 08/09/17 14:31 Last Admin: 08/09/17 14:48 Dose: 25 mcg Misoprostol (Cytotec) 25 mcg VAG ONETIME ONE Stop: 08/09/17 14:31 Last Admin: 08/09/17 14:50 Dose: 25 mcg Nalbuphine HCl (Nubain) 10 mg IVPUSH Q1H PRN PRN Reason: Pain (severe 7-10)
[2017-08-10] MEDS ORDERED: Docusate Sodium 100 MG Cap PO PRN (15:16)
[2017-08-10] MEDS ORDERED: Benzocaine/Menthol 20%-0.5% Spray 78 GM Cannister TOP PRN (15:16)
[2017-08-10] MEDS ORDERED: Acetaminophen 500 MG Tab PO PRN ×2 (15:16)
[2017-08-10] MEDS ORDERED: Lanolin 100% Cream 7 GM Tube TOP PRN (15:16)
[2017-08-10] MEDS ORDERED: Bisacodyl 10 MG Supp RECTAL PRN (15:16)
[2017-08-10] MEDS ORDERED: Ibuprofen 400 MG Tab PO PRN (15:16)
[2017-08-10] MEDS ORDERED: oxyCODONE 5 MG Tab PO PRN (15:16)
[2017-08-10] MEDS ORDERED: Witch Hazel Medicated Pads 40/Jar TOP PRN (15:16)
--- NOTE | 2017-08-10 15:23 | PCM.DEL ---
L & D Note - General Info Date of Service: 08/10/17 Mother's Due Date: 08/16/17 - Delivery Note Labor: Augmented by Oxytocin Cervical Ripening Method: Misoprostil Delivery Outcome: Livebirth Infant Delivery Method: Spontaneous Vaginal Delivery-Single Delivery Mode: Spontaneous Presentation: Vertex Nuchal Cord: None Anesthesia Type: Epidural Episiotomy Type: None Laceration: None Placenta: Intact, Spontaneous Cord: 3 Vessels Estimated Blood Loss: 100 Resuscitation Needed: No [place]: Warmed Score 1 min: 8 Score 5 min: 9 Delivery Comments (Free Text/Narrative):: of viable female over intact perineum. Head delivered with good pushing. Shoulders and body followed easily, Infant to mothers abd with RN at for evaluation. Spont cry. Delayed cord clamping. Pitocin to IVF. Cord clamped and cut by FOB. Cord blood collected. Placenta delivered grossly intact. Inspection noted intact perineum. Apgars 8/9, EBL 100cc, Wt: pending bonding. Mother and baby left in stable condition bonding well. Aleta MELVIN assisted with delivery. Induction Criteria - Induction Gestational Age >/= 39 wks: Yes Medical Indication: elective Estimated Pelvis: Reports: Adequate Reassuring Monitoring Strip: Yes Absence of Tachy Systole: Yes - Augmentation Weight Estimated:: Reports: AGA Reassuring Monitoring Strip: Yes Absence of Tachy Systole: Yes - General Info Date of Service: 08/10/17 Admission Dx/Problem (Free Text): Patient Status Order with Admit Dx/Problem 08/09/17 05:35 Patient Status [ADT] Routine Admission Diagnosis/Problem Admission Diagnosis/Problem - planned 08/09/17 09:56 26 yo Thu08/16/2017 39 0/7wks. A+, R-equivocal, GBS neg. Elective IOL. Functional Status: Reports: Pain Controlled - Review of Systems General: Reports: No Symptoms HEENT: Reports: No Symptoms Pulmonary: Reports: No Symptoms Cardiovascular: Reports: No Symptoms Gastrointestinal: Reports: No Symptoms Genitourinary: Reports: No Symptoms Musculoskeletal: Reports: No Symptoms Skin: Reports: No Symptoms Neurological: Reports: No Symptoms Psychiatric: Reports: No Symptoms - Patient Data Vitals - Most Recent: Last Vital Signs Temp Pulse 105 H 08/10/17 10:30 Resp BP 140/90 08/10/17 10:30 Pulse Ox Weight - Most Recent: 92.986 kg Med Orders - Current: Current Medications Acetaminophen (Tylenol Extra Strength) 500 mg PO Q4H PRN PRN Reason: Pain Acetaminophen (Tylenol Extra Strength) 1,000 mg PO Q4H PRN PRN Reason: Pain Benzocaine/Menthol (Dermoplast Pain Relief 20%-0.5% [place]) 78 gm TOP ASDIRECTED PRN PRN Reason: Perineal Comfort Measure Bisacodyl (Dulcolax) 10 mg RECTAL .ONCE PRN PRN Reason: Constipation Docusate Sodium (Colace) 100 mg PO BID PRN PRN Reason: Constipation Emollient Ointment (Lansinoh Hpa) 0 gm TOP ASDIRECTED PRN PRN Reason: Sore Nipples Ibuprofen (Motrin) 400 mg PO Q4H PRN PRN Reason: Pain Ibuprofen (Motrin) 800 mg PO Q6H PRN PRN Reason: Pain Oxycodone HCl (Oxycodone) 5 mg PO Q2H PRN PRN Reason: Pain Witch Gabriela (Tucks) 1 pad TOP ASDIRECTED PRN PRN Reason: comfort care Discontinued Medications Carboprost Tromethamine (Hemabate Ds) 250 mcg IM ASDIRECTED PRN PRN Reason: Post Hemorrhage Fentanyl (Sublimaze) Confirm Administered Dose 100 mcg .ROUTE .STK-MED ONE Stop: 08/10/17 09:31 Lactated Ringer's (Ringers, Lactated) 1,000 mls @ 150 mls/hr IV ASDIRECTED TRACY Last Admin: 08/10/17 10:58 Dose: 150 mls/hr Oxytocin/Sodium Chloride (Oxytocin 30 Unit/500 Ml-Ns) 30 unit in 500 mls @ 999 mls/hr IV TITRATE TRACY Tranexamic Acid 1,000 mg/ (Sodium Chloride) 110 mls @ 660 mls/hr IV ONETIME PRN PRN Reason: Bleeding Oxytocin/Sodium Chloride (Oxytocin 30 Unit/500 Ml-Ns) 30 unit in 500 mls @ 2 mls/hr IV TITRATE TRACY; Protocol Last Titration: 08/10/17 13:50 Dose: 12 munits/min, 12 mls/hr Fentanyl/Bupivacaine HCl (Quzcxgbu-Egamp-Yx 2 Mcg/Ml-0.125%) Confirm Administered Dose 100 mls @ as directed EP .STK-MED ONE Stop: 08/10/17 09:31 Lidocaine HCl (Xylocaine 1%) 50 ml INJECT .ONCE PRN PRN Reason: Laceration repair Methylergonovine Maleate (Methergine) 0.2 mg IM ASDIRECTED PRN PRN Reason: Post Hemorrhage Misoprostol (Cytotec) 200 mcg PO .ONCE PRN PRN Reason: Post Hemorrhage Misoprostol (Cytotec) 25 mcg PO ONETIME ONE Stop: 08/09/17 14:31 Last Admin: 08/09/17 14:48 Dose: 25 mcg Misoprostol (Cytotec) 25 mcg VAG ONETIME ONE Stop: 08/09/17 14:31 Last Admin: 08/09/17 14:50 Dose: 25 mcg Misoprostol (Cytotec) 25 mcg PO Q4H PRN PRN Reason: cervical ripening Last Admin: 08/09/17 18:36 Dose: 25 mcg Misoprostol (Cytotec) 25 mcg VAG Q4H PRN PRN Reason: cervical ripening Last Admin: 08/09/17 18:38 Dose: 25 mcg Nalbuphine HCl (Nubain) 10 mg IVPUSH Q1H PRN PRN Reason: Pain (severe 7-10) Nalbuphine HCl (Nubain) 10 mg IVPUSH Q1H PRN PRN Reason: Pain (severe 7-10) Last Admin: 08/09/17 12:21 Dose: 10 mg Ondansetron HCl (Zofran) 4 mg IVPUSH Q4H PRN PRN Reason: Nausea Last Admin: 08/09/17 14:06 Dose: 4 mg Phenylephrine HCl (Carlin-Synephrine) Confirm Administered Dose 10 mg .ROUTE .STK- MED ONE Stop: 08/10/17 10:24 Sodium Chloride (Saline Flush) 10 ml FLUSH ASDIRECTED PRN PRN Reason: Keep Vein Open Sodium Chloride (Saline Flush) 2.5 ml FLUSH ASDIRECTED PRN PRN Reason: Keep Vein Open Sterile Water (Sterile Water For Irrigation) 1,000 ml IRR ASDIRECTED PRN PRN Reason: delivery Terbutaline Sulfate (Brethine) 0.25 mg SUBCUT ASDIRECTED PRN PRN Reason: Tacysystole - Exam General: Alert, Oriented, Cooperative, No Acute Distress Lungs: Normal Respiratory Effort GI/Abdominal Exam: Soft, Non-Tender (Female) Exam: Normal External Exam, Normal Bimanual Exam, Vaginal Bleeding Back Exam: Normal Inspection, Full Range of Motion Extremities: Normal Inspection, Normal Range of Motion, Non-Tender, No Pedal Edema, Normal Capillary Refill Skin: Warm, Dry, Intact Wound/Incisions: Healing Well Neurological: No New Focal Deficit, Normal Speech, Normal Tone Psy/Mental Status: Alert, Normal Affect, Normal Mood - Problem List & Annotations (1) Supervision of normal IUP (intrauterine ) in multigravida SNOMED Code(s): 990245440, 609111019, 968987203 Code(s): Z34.80 - ENCOUNTER FOR SUPRVSN OF NORMAL , UNSP TRIMESTER Status: Acute Priority: High Current Visit: Yes Qualifiers: Trimester: third trimester Qualified Code(s): Z34.83 - Encounter for supervision of other normal , third trimester (2) (normal spontaneous vaginal delivery) SNOMED Code(s): 61632067 Code(s): O80 - ENCOUNTER FOR FULL-TERM UNCOMPLICATED DELIVERY Status: Acute Priority: High Current Visit: Yes - Problem List Review Problem List Initiated/Reviewed/Updated: Yes - My Orders Last 24 Hours: My Active Orders 08/10/17 15:16 May Shower [RC] ASDIRECTED Up ad Saima [RC] ASDIRECTED Vital Signs [RC] PER UNIT ROUTINE Acetaminophen [Tylenol Extra Strength] 1,000 mg PO Q4H PRN Acetaminophen [Tylenol Extra Strength] 500 mg PO Q4H PRN Benzocaine/Menthol [Dermoplast Pain Relief 20%-0.5% [place]] 78 gm TOP ASDIRECTED PRN Bisacodyl [Dulcolax] 10 mg RECTAL .ONCE PRN Docusate Sodium [Colace] 100 mg PO BID PRN Ibuprofen [Motrin] 400 mg PO Q4H PRN Ibuprofen [Motrin] 800 mg PO Q6H PRN Lanolin [Lansinoh HPA] See Dose Instructions TOP ASDIRECTED PRN Witch Gabriela [Tucks] 1 pad TOP ASDIRECTED PRN oxyCODONE 5 mg PO Q2H PRN Assess Lochia [WOMSER] Per Unit Routine Assess Uterine Involution [WOMSER] Per Unit Routine Peripheral IV Discontinue [OM.PC] Routine Resuscitation Status Routine 08/10/17 15:17 Patient Status [ADT] Routine 08/10/17 Dinner Regular Diet [DIET] - Plan Plan:: IOL A: 26 yo Thu08/16/2017 39 0/7wks. A+, R-equivocal, GBS neg. Elective IOL. P: Admit, pitocin, Epidural prn, anticipate . Dr Hairston updated. Labor A: of viable female. APGARS 8/9, Wt: pending. EBL 100cc, intact. Stable P: routine pp plan of care
--- NOTE | 2017-08-11 01:17 | PCM48HPAN ---
Post Anesthesia Note - EVALUATION WITHIN 48HRS OF ANESTHETIC Vital Signs in Normal Range: Yes Patient Participated in Evaluation: Yes Respiratory Function Stable: Yes Airway Patent: Yes Cardiovascular Function Stable: Yes Hydration Status Stable: Yes Pain Control Satisfactory: Yes Nausea and Vomiting Control Satisfactory: Yes Mental Status Recovered: Yes Pulse Rate: 105 Blood Pressure: 140/90
[2017-08-11] MEDS: Ibuprofen 800 MG Tab PO PRN ×2 (03:26→09:48)
--- NOTE | 2017-08-11 08:02 | PCM.DCSUM1 ---
Discharge Summary - Hospital Course Free Text/Narrative:: Discharge home with . Follow up in 6 weeks for post or sooner if needed. - Discharge Data Discharge Date: 08/11/17 Discharge Disposition: Home, Self-Care 01 Condition: Good - Discharge Diagnosis/Problem(s) (1) Supervision of normal IUP (intrauterine ) in multigravida SNOMED Code(s): 011230211, 316608479, 330387320 ICD Code: Z34.80 - ENCOUNTER FOR SUPRVSN OF NORMAL , UNSP TRIMESTER Status: Acute Priority: High Current Visit: Yes Qualifiers: Trimester: third trimester Qualified Code(s): Z34.83 - Encounter for supervision of other normal , third trimester (2) (normal spontaneous vaginal delivery) SNOMED Code(s): 07212798 ICD Code: O80 - ENCOUNTER FOR FULL-TERM UNCOMPLICATED DELIVERY Status: Acute Priority: High Current Visit: Yes - Patient Instructions Diet: Usual Diet as Tolerated Activity: As Tolerated, No Strenuous Activities, Rest and Relax Today Driving: May Drive Today Showering/Bathing: May Shower Notify Provider of: Fever, Increased Pain, Swelling and Redness, Nausea and/or Vomiting - Discharge Plan Home Medications: Home Meds FLUoxetine [PROzac] 1 tab PO DAILY 07/12/17 [History] Ondansetron HCl [Zofran] 1 tab PO Q6H PRN 07/12/17 [History] Vit W-Ca,Fe,FA(<1 mg) [ Vitamins] 1 tab PO DAILY 07/12/17 [ History] Referrals: [facility] [Outside] Claire Eisenberg CNM [Mid-] - 09/21/17 10:45 am - General Info Date of Service: 08/11/17 Admission Dx/Problem (Free Text: Patient Status Order with Admit Dx/Problem 08/09/17 05:35 Patient Status [ADT] Routine Admission Diagnosis/Problem Admission Diagnosis/Problem - planned 08/09/17 09:56 26 yo WED 08/16/2017 39 0/7wks. A+, R-equivocal, GBS neg. Elective IOL. Functional Status: Reports: Pain Controlled, Tolerating Diet, Ambulating, Urinating - Review of Systems General: Reports: No Symptoms HEENT: Reports: No Symptoms Pulmonary: Reports: No Symptoms Cardiovascular: Reports: No Symptoms Gastrointestinal: Reports: No Symptoms Genitourinary: Reports: No Symptoms Musculoskeletal: Reports: No Symptoms Skin: Reports: No Symptoms Neurological: Reports: No Symptoms Psychiatric: Reports: No Symptoms - Patient Data Vitals - Most Recent: Last Vital Signs Temp 36.7 C 08/11/17 04:36 Pulse 95 08/11/17 04:36 Resp 16 08/11/17 04:36 BP 125/76 08/11/17 04:36 Pulse Ox 93 L 08/11/17 04:36 Weight - Most Recent: 92.986 kg Med Orders - Current: Current Medications Acetaminophen (Tylenol Extra Strength) 500 mg PO Q4H PRN PRN Reason: Pain Acetaminophen (Tylenol Extra Strength) 1,000 mg PO Q4H PRN PRN Reason: Pain Benzocaine/Menthol (Dermoplast Pain Relief 20%-0.5% [place]) 78 gm TOP ASDIRECTED PRN PRN Reason: Perineal Comfort Measure Bisacodyl (Dulcolax) 10 mg RECTAL .ONCE PRN PRN Reason: Constipation Docusate Sodium (Colace) 100 mg PO BID PRN PRN Reason: Constipation Emollient Ointment (Lansinoh Hpa) 0 gm TOP ASDIRECTED PRN PRN Reason: Sore Nipples Ibuprofen (Motrin) 400 mg PO Q4H PRN PRN Reason: Pain Ibuprofen (Motrin) 800 mg PO Q6H PRN PRN Reason: Pain Last Admin: 08/11/17 03:26 Dose: 800 mg Oxycodone HCl (Oxycodone) 5 mg PO Q2H PRN PRN Reason: Pain Witch Gabriela (Tucks) 1 pad TOP ASDIRECTED PRN PRN Reason: comfort care Discontinued Medications Carboprost Tromethamine (Hemabate Ds) 250 mcg IM ASDIRECTED PRN PRN Reason: Post Hemorrhage Fentanyl (Sublimaze) Confirm Administered Dose 100 mcg .ROUTE .STK-MED ONE Stop: 08/10/17 09:31 Lactated Ringer's (Ringers, Lactated) 1,000 mls @ 150 mls/hr IV ASDIRECTED TRACY Last Admin: 08/10/17 10:58 Dose: 150 mls/hr Oxytocin/Sodium Chloride (Oxytocin 30 Unit/500 Ml-Ns) 30 unit in 500 mls @ 999 mls/hr IV TITRATE TRACY Tranexamic Acid 1,000 mg/ (Sodium Chloride) 110 mls @ 660 mls/hr IV ONETIME PRN PRN Reason: Bleeding Oxytocin/Sodium Chloride (Oxytocin 30 Unit/500 Ml-Ns) 30 unit in 500 mls @ 2 mls/hr IV TITRATE TRACY; Protocol Last Titration: 08/10/17 13:50 Dose: 12 munits/min, 12 mls/hr Fentanyl/Bupivacaine HCl (Hggkibns-Mmkzz-Fb 2 Mcg/Ml-0.125%) Confirm Administered Dose 100 mls @ as directed EP .STK-MED ONE Stop: 08/10/17 09:31 Lidocaine HCl (Xylocaine 1%) 50 ml INJECT .ONCE PRN PRN Reason: Laceration repair Methylergonovine Maleate (Methergine) 0.2 mg IM ASDIRECTED PRN PRN Reason: Post Hemorrhage Misoprostol (Cytotec) 200 mcg PO .ONCE PRN PRN Reason: Post Hemorrhage Misoprostol (Cytotec) 25 mcg PO ONETIME ONE Stop: 08/09/17 14:31 Last Admin: 08/09/17 14:48 Dose: 25 mcg Misoprostol (Cytotec) 25 mcg VAG ONETIME ONE Stop: 08/09/17 14:31 Last Admin: 08/09/17 14:50 Dose: 25 mcg Misoprostol (Cytotec) 25 mcg PO Q4H PRN PRN Reason: cervical ripening Last Admin: 08/09/17 18:36 Dose: 25 mcg Misoprostol (Cytotec) 25 mcg VAG Q4H PRN PRN Reason: cervical ripening Last Admin: 08/09/17 18:38 Dose: 25 mcg Nalbuphine HCl (Nubain) 10 mg IVPUSH Q1H PRN PRN Reason: Pain (severe 7-10) Nalbuphine HCl (Nubain) 10 mg IVPUSH Q1H PRN PRN Reason: Pain (severe 7-10) Last Admin: 08/09/17 12:21 Dose: 10 mg Ondansetron HCl (Zofran) 4 mg IVPUSH Q4H PRN PRN Reason: Nausea Last Admin: 08/09/17 14:06 Dose: 4 mg Phenylephrine HCl (Carlin-Synephrine) Confirm Administered Dose 10 mg .ROUTE .[employer] ONE Stop: 08/10/17 10:24 Sodium Chloride (Saline Flush) 10 ml FLUSH ASDIRECTED PRN PRN Reason: Keep Vein Open Sodium Chloride (Saline Flush) 2.5 ml FLUSH ASDIRECTED PRN PRN Reason: Keep Vein Open Sterile Water (Sterile Water For Irrigation) 1,000 ml IRR ASDIRECTED PRN PRN Reason: delivery Terbutaline Sulfate (Brethine) 0.25 mg SUBCUT ASDIRECTED PRN PRN Reason: Tacysystole - Exam General: Reports: Alert, Oriented, Cooperative, No Acute Distress Lungs: Reports: Clear to Auscultation, Normal Respiratory Effort Cardiovascular: Reports: Regular Rate, Regular Rhythm, No Murmurs, Irregular Rhythm GI/Abdominal Exam: Normal Bowel Sounds, Soft, Non-Tender, No Organomegaly, No Distention, No Abnormal Bruit, No Mass, Pelvis Stable (Female) Exam: Vaginal Bleeding Rectal (Female) Exam: Deferred Back Exam: Reports: Normal Inspection, Full Range of Motion Extremities: Normal Inspection, Normal Range of Motion, Non-Tender, No Pedal Edema, Normal Capillary Refill Skin: Reports: Warm, Dry, Intact Wound/Incisions: Reports: Healing Well Neurological: Reports: No New Focal Deficit, Normal Speech, Normal Tone, Strength Equal Bilateral Psy/Mental Status: Reports: Alert, Normal Affect, Normal Mood
[2017-08-11] MEDS ORDERED: Measles, Mumps & Rubella Vaccine 0.5 ML SDV SUBCUT ONE (08:21)
== END 2017-08-11 21:30 | disposition home or self-care (01) | DRG 775 ==
LOC: MW.OBCHECK 05:13 → MW.OB 05:15 → MW.OBCHECK 05:35 → MW.OB 05:35 → OBSVTOIN 08-10 15:02
PROVIDERS: ADMIT Obstetrics & Gynecology; ATTEND Obstetrics & Gynecology
PROC: 10E0XZZ Delivery of Products of Conception, External Approach (ICD-10-PCS; principal; 2017-08-10)
PROC: 10907ZC Drainage of Amniotic Fluid, Therapeutic from Products of Conception, Via Natural or Artificial Opening (ICD-10-PCS; 2017-08-10)
PROC: 3E033VJ Introduction of Other Hormone into Peripheral Vein, Percutaneous Approach (ICD-10-PCS; 2017-08-10)
PROC: 10907ZC Drainage of Amniotic Fluid, Therapeutic from Products of Conception, Via Natural or Artificial Opening (ICD-10-PCS; 2017-08-10)
DX: O80 Encounter for full-term uncomplicated delivery (principal); O99.334 Smoking (tobacco) complicating childbirth; Z3A.39 39 weeks gestation of pregnancy; Z37.0 Single live birth
CPT/HCPCS: 01967-QZ; 36415; 51702; 59409; 85027; 86850; 86900; 86901; 90471; 90707; A9270-GY; J2300; J2370; J2405; J2590; J3010; J7120

== ENCOUNTER 2017-09-13 11:18 | Emergency (ER) | payer MEDICAID ==
[2017-09-13] MEDS ORDERED: Amoxicillin/Clavulanate K 875-125 MG Tab PO ONE (12:24)
--- NOTE | 2017-09-13 12:25 | EDM.PDOC ---
ED HPI GENERAL MEDICAL PROBLEM - General Chief Complaint: ENT Problem Stated Complaint: RUNNY NOSE FOR 2 WKS Time Seen by Provider: 09/13/17 12:17 Source of Information: Reports: Patient History Limitations: Reports: No Limitations - History of Present Illness INITIAL COMMENTS - FREE TEXT/NARRATIVE: HISTORY AND PHYSICAL: History of present illness: Patient is a 26-year-old female to the ED with c/o runny nose, bilateral ear pain, and sinus pressure x 2 weeks. She denies any fever, chills, chest pain, shortness of breath, or cough. Denies any abdominal pain, nausea, vomiting, diarrhea or constipation. Review of systems: As per history of present illness and below otherwise all systems reviewed and negative. Past medical history: As per history of present illness and as reviewed below otherwise noncontributory. Surgical history: As per history of present illness and as reviewed below otherwise noncontributory. Social history: No reported history of drug or alcohol abuse. Family history: As per history of present illness and as reviewed below otherwise noncontributory. Physical exam: General: Developed and well-nourished 26-year-old -[place] female. Nontoxic appearing and in no acute distress. HEENT: Atraumatic, normocephalic, pupils equal and reactive bilaterally, negative for conjunctival pallor or scleral icterus, mucous membranes moist, maxillary sinus pressure with palpation bilateral, TM normal bilaterally, throat clear, neck supple, nontender, trachea midline. No drooling or trismus noted. No meningeal signs Lungs: Clear to auscultation, breath sounds equal bilaterally, chest nontender. Heart: S1S2, regular rate and rhythm without overt murmur Abdomen: Soft, nondistended, nontender. Negative for masses or hepatosplenomegaly. Negative for costovertebral tenderness. Pelvis: Stable nontender. Genitourinary: Deferred. Rectal: Deferred. Skin: Intact, warm, dry. No lesions or rashes noted. Extremities: Atraumatic, negative for cords or calf pain. Neurovascular unremarkable. Neuro: Awake, alert, oriented. Cranial nerves II through XII unremarkable. Cerebellum unremarkable. Motor and sensory unremarkable throughout. Exam nonfocal. Notes: Will treat patient with a amoxicillin 10 days. She does state she has seasonal allergies and has been using [id number] Claritin, Mucinex and Tylenol Cold without any relief. Diagnostics: [] Therapeutics: [] Impression: Sinusitis Plan: 1. Please continue with the dqec-oul-gymcfsa sinus medications. 2. Take your prescribed medications as directed 3. Follow-up with your primary care provider in the next 1-2 days. Return to the ED as needed and as discussed. Definitive disposition and diagnosis as appropriate pending reevaluation and review of above. 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 Social & Family History - Family History Family Medical History: Noncontributory - Tobacco Use Smoking Status *Q: Current Every Day Smoker Years of Tobacco use: 9 Packs/Tins Daily: 1 - Caffeine Use Caffeine Use: Reports: None ED ROS ENT - Review of Systems Review Of Systems: ROS reveals no pertinent complaints other than HPI. ED EXAM, ENT - Physical Exam Exam: See Below (See dictation) Course - Vital Signs Last Recorded V/S: Last Vital Signs Temp 97.3 F 09/13/17 12:10 Pulse 138 H 09/13/17 12:10 Resp 40 H 09/13/17 12:10 BP 154/93 H 09/13/17 12:03 Pulse Ox 100 09/13/17 12:10 - Orders/Labs/Meds Meds: Medications Discontinued Medications Generic Name Dose Route Start Last Admin Trade Name Freq PRN Reason Stop Dose Admin Amoxicillin/Clavulanate Potassium 1 tab 09/13/17 12:24 09/13/17 12:28 Augmentin 875 Mg/125 Mg PO 09/13/17 12:25 1 tab ONETIME ONE Administration Departure - Departure Time of Disposition: 12:25 Disposition: Home, Self-Care 01 Clinical Impression: Sinusitis Qualifiers: Sinusitis location: maxillary Chronicity: unspecified Qualified Code(s): J32.0 - Chronic maxillary sinusitis - Discharge Information Instructions: Sinusitis, Adult, [facility] Referrals: [facility] [Outside] Forms: ED Department Discharge Additional Instructions: The following information is given to patients seen in the emergency department who are being discharged to home. This information is to outline your options for follow-up care. We provide all patients seen in our emergency department with a follow-up referral. The need for follow-up, as well as the timing and circumstances, are variable depending upon the specifics of your emergency department visit. If you don't have a primary care physician on staff, we will provide you with a referral. We always advise you to contact your personal physician following an emergency department visit to inform them of the circumstance of the visit and for follow-up with them and/or the need for any referrals to a consulting specialist. The emergency department will also refer you to a specialist when appropriate. This referral assures that you have the opportunity for follow-up care with a specialist. All of these measure are taken in an effort to provide you with optimal care, which includes your follow-up. Under all circumstances we always encourage you to contact your private physician who remains a resource for coordinating your care. When calling for follow-up care, please make the office aware that this follow-up is from your recent emergency room visit. If for any reason you are refused follow-up, please contact the [facility] at and asked to speak to the emergency department charge nurse. [facility] [address] [place] [id number] 1. Please continue with the rupj-exn-dleetyi sinus medications. 2. Take your prescribed medications as directed 3. Follow-up with your primary care provider in the next 1-2 days. Return to the ED as needed and as discussed.
== END 2017-09-13 12:36 | disposition home or self-care (01) ==
LOC: MW.ED 11:18
DX: O99.512 Diseases of the respiratory system complicating pregnancy, second trimester (principal); J32.0 Chronic maxillary sinusitis; O99.332 Smoking (tobacco) complicating pregnancy, second trimester; F17.210 Nicotine dependence, cigarettes, uncomplicated; Z3A.16 16 weeks gestation of pregnancy
CPT/HCPCS: 99282; A9270; 99283

== ENCOUNTER 2018-08-15 11:48 | Inpatient (IN) | payer MEDICAID ==
[2018-08-15] MEDS ORDERED: Tranexamic Acid 1,000 MG in Sodium Chloride 0.9% 100 ML IV PRN (12:02)
[2018-08-15] MEDS ORDERED: Ondansetron 4 MG/2 ML SDV IV PRN (12:02)
[2018-08-15] MEDS ORDERED: Lidocaine 1% 50 ML MDV INJECT PRN (12:02)
[2018-08-15] MEDS ORDERED: Sodium Chloride 0.9% 2.5 ML Syringe FLUSH PRN (12:02)
[2018-08-15] MEDS ORDERED: Water For Irrigation,Sterile 1,000 ML Container IRR PRN (12:02)
[2018-08-15] MEDS ORDERED: Methylergonovine 0.2 MG/1 ML Amp IM PRN (12:02)
[2018-08-15] MEDS ORDERED: Sodium Chloride 0.9% 10 ML Syringe FLUSH PRN (12:02)
[2018-08-15] MEDS ORDERED: Misoprostol 200 MCG Tab PO PRN (12:02)
[2018-08-15] MEDS ORDERED: Sodium Chloride 0.9% 10 ML SDV IV PRN (12:02)
[2018-08-15] MEDS ORDERED: Carboprost Tromethamine 250 MCG/1 ML Amp IM PRN (12:02)
[2018-08-15] MEDS ORDERED: Butorphanol 1 MG/ML SDV IVPUSH PRN (12:02)
[2018-08-15] MEDS ORDERED: Nalbuphine 10 MG/1 ML Vial IVPUSH PRN (12:02)
[2018-08-15] MEDS ORDERED: Misoprostol 25 MCG (1/4 of 100 MCG) Tab PO PRN ×2 (12:05)
[2018-08-15] MEDS ORDERED: Misoprostol 25 MCG (1/4 of 100 MCG) Tab VAG PRN ×2 (12:05)
[2018-08-15] MEDS ORDERED: Terbutaline 1 MG/ML SDV SUBCUT PRN (12:05)
[2018-08-15] MEDS ORDERED: Lactated Ringers 1,000 ML IV SCH (12:15)
[2018-08-15] MEDS ORDERED: Oxytocin/0.9 % Sodium Chloride 30 UNIT/500 ML BAG IV SCH ×2 (12:15)
--- NOTE | 2018-08-15 14:00 | PCM.LDHP ---
L&D History of Present Illness - General Date of Service: 08/15/18 Admit Problem/Dx: Patient Status Order with Admit Dx/Problem 08/15/18 12:02 Patient Status [ADT] Routine Admission Diagnosis/Problem Admission Diagnosis/Problem Source of Information: Patient History Limitations: Reports: No Limitations - History of Present Illness Improves with: Reports: None Worsens with: Reports: None Associated Symptoms: Reports: N - Related Data Allergies/Adverse Reactions: Allergies Allergy/AdvReac Type Severity Reaction Status Date / Time No Known Allergies Allergy Verified 07/12/17 23:36 Home Medications: Home Meds FLUoxetine [PROzac] 1 tab PO DAILY 07/12/17 [History] Ondansetron HCl [Zofran] 1 tab PO Q6H PRN 07/12/17 [History] Vit Calc,Iron,Folic [ Vitamins] 1 tab PO DAILY 07/12/17 [ History] Past Medical History - Past Health History Medical/Surgical History: Denies Medical/Surgical History Cardiovascular History: Reports: Syncope RN RADIOLOGY History: Reports: Other OB/BYN History: 16 weeks gestation, has had some vaginal discharge and spotting throughout the . Social & Family History - Family History Family Medical History: Noncontributory - Tobacco Use Smoking Status *Q: Current Every Day Smoker Years of Tobacco use: 5 Packs/Tins Daily: 0.5 Used Tobacco, but Quit: No Second Hand Smoke Exposure: Yes - Caffeine Use Caffeine Use: Reports: None - Recreational Drug Use Recreational Drug Use: No H&P Review of Systems - Review of Systems: Review Of Systems: See Below General: Reports: No Symptoms HEENT: Reports: No Symptoms Pulmonary: Reports: No Symptoms Cardiovascular: Reports: No Symptoms Gastrointestinal: Reports: No Symptoms Genitourinary: Reports: No Symptoms Musculoskeletal: Reports: No Symptoms Skin: Reports: No Symptoms Psychiatric: Reports: No Symptoms Neurological: Reports: No Symptoms Hematologic/Lymphatic: Reports: No Symptoms Immunologic: Reports: No Symptoms L&D Exam - Exam Exam: See Below - Vital Signs Weight: 96.162 kg - OB Specific Fundal Height In cm: 38 Contraction Intensity: Mild Movement: Active Heart Tones: Present Presentation: Vertex - Morales Score Morales Score Cervix Position: Midposition Morales Score Consistency: Medium Morales Score Effacement: 31-50% Morales Score Dilation: 1-2 cm Morales Score Infant's Station: -3 Morales Score Total: 4 - Exam General: Alert, Oriented HEENT: PERRLA, Conjunctiva Clear, EACs Clear, EOMI, Hearing Intact, Mucosa Moist & [place], Nares Patent, Normal Nasal Septum, Posterior Pharynx Clear, TMs Clear Neck: Supple, Trachea Midline Lungs: Clear to Auscultation, Normal Respiratory Effort Cardiovascular: Regular Rate, Regular Rhythm GI/Abdominal Exam: Normal Bowel Sounds, Soft, Non-Tender, No Organomegaly, No Distention, No Abnormal Bruit, No Mass, Pelvis Stable Rectal Exam: Normal Exam, Normal Rectal Tone Genitourinary: Normal external exam, Normal bimanual exam, Normal speculum exam Back Exam: Normal Inspection, Full Range of Motion Extremities: Normal Inspection, Normal Range of Motion, Non-Tender, No Pedal Edema, Normal Capillary Refill Skin: Warm, Dry, Intact Neurological: Cranial Nerves Intact, Reflexes Equal Bilateral Psychiatric: Alert, Normal Affect, Normal Mood - Patient Data Lab Results Last 24 hrs: Laboratory Results - last 24 hr 08/15/18 08/15/18 Range/Units 12:35 12:35 WBC 10.54 (4.0-11.0) K/uL RBC 3.93 L (4.30-5.90) M/uL Hgb 10.0 L (12.0-16.0) g/dL Hct 31.0 L (36.0-46.0) % MCV 78.9 L (80.0-98.0) fL MCH 25.4 L (27.0-32.0) pg MCHC 32.3 (31.0-37.0) g/dL RDW Std Deviation 44.5 (28.0-62.0) fl RDW Coeff of [place] 15 (11.0-15.0) % Plt Count 355 (150-400) K/uL MPV 9.20 (7.40-12.00) fL Nucleated RBC % 0.0 /100WBC Nucleated RBCs # 0 K/uL Blood Type A POSITIVE Antibody Screen NEGATIVE Result Diagrams: 08/15/18 12:35 Problem List Initiated/Reviewed/Updated: Yes Orders Last 24hrs: Active Orders 24 hr Category Date Time Status Patient Status [ADT] Routine ADT 08/15/18 12:02 Active Bedrest Bathroom Privileges [RC] ASDIRECTED Care 08/15/18 12:05 Active Communication Order [RC] ASDIRECTED Care 08/15/18 12:05 Active Communication Order [RC] ASDIRECTED Care 08/15/18 12:05 Active Communication Order [RC] ASDIRECTED Care 08/15/18 12:05 Active Enema [RC] ASDIRECTED Care 08/15/18 12:18 Active Heart Tones [RC] CONTINUOUS Care 08/15/18 12:02 Active Non Stress Test [RC] PER UNIT ROUTINE Care 08/15/18 12:02 Active May Shower [RC] ASDIRECTED Care 08/15/18 12:02 Active Notify Provider [RC] PRN Care 08/15/18 12:02 Active Notify Provider [RC] PRN Care 08/15/18 12:05 Active Notify Provider [RC] PRN Care 08/15/18 12:05 Active Notify Provider [RC] STAT Care 08/15/18 12:05 Active Oxygen Therapy [RC] ASDIRECTED Care 08/15/18 12:05 Active Up ad Saima [RC] ASDIRECTED Care 08/15/18 12:02 Active Vaginal Exam [RC] PRN Care 08/15/18 12:02 Active Vaginal Exam [RC] PRN Care 08/15/18 12:05 Active Vital Signs [RC] PER UNIT ROUTINE Care 08/15/18 12:02 Active Vital Signs [RC] PER UNIT ROUTINE Care 08/15/18 12:05 Active Butorphanol [Stadol] Med 08/15/18 12:02 Active 1 mg IVPUSH Q1H PRN Carboprost Tromethamine [Hemabate DS] Med 08/15/18 12:02 Active 250 mcg IM ASDIRECTED PRN Lactated Ringers [Ringers, Lactated] 1,000 ml Med 08/15/18 12:15 Active IV ASDIRECTED Lidocaine 1% [Xylocaine 1%] Med 08/15/18 12:02 Active 50 ml INJECT ONETIME PRN Methylergonovine [Methergine] Med 08/15/18 12:02 Active 0.2 mg IM ASDIRECTED PRN Nalbuphine [Nubain] Med 08/15/18 12:02 Active 10 mg IVPUSH Q1H PRN Ondansetron [Zofran] Med 08/15/18 12:02 Active 4 mg IV Q4H PRN Oxytocin/0.9 % Sodium Chloride [Oxytocin 30 Unit/500 ML Med 08/15/18 12:15 Active -NS] 30 unit in 500 ml IV TITRATE Oxytocin/0.9 % Sodium Chloride [Oxytocin 30 Unit/500 ML Med 08/15/18 12:15 Active -NS] 30 unit in 500 ml IV TITRATE Sodium Chloride 0.9% [Normal Saline] Med 08/15/18 12:02 Active 10 ml IV ASDIRECTED PRN Sodium Chloride 0.9% [Saline Flush] Med 08/15/18 12:02 Active 10 ml FLUSH ASDIRECTED PRN Sodium Chloride 0.9% [Saline Flush] Med 08/15/18 12:02 Active 2.5 ml FLUSH ASDIRECTED PRN Terbutaline [Brethine] Med 08/15/18 12:05 Active 0.25 mg SUBCUT ASDIRECTED PRN Tranexamic Acid [Cyklokapron] 1,000 mg Med 08/15/18 12:02 Active Sodium Chloride 0.9% [Normal Saline] 100 ml IV ONETIME Water For Irrigation,Sterile [Sterile Water for Med 08/15/18 12:02 Active Irrigation] 1,000 ml IRR ASDIRECTED PRN miSOPROStol [Cytotec] Med 08/15/18 12:02 Active 200 mcg PO ONETIME PRN miSOPROStol [Cytotec] Med 08/15/18 12:05 Active 25 mcg PO ONETIME PRN miSOPROStol [Cytotec] Med 08/15/18 12:05 Active 25 mcg PO Q4H PRN miSOPROStol [Cytotec] Med 08/15/18 12:05 Active 25 mcg VAG ONETIME PRN miSOPROStol [Cytotec] Med 08/15/18 12:05 Active 25 mcg VAG Q4H PRN Scalp Electrode [WOMSER] Per Unit Routine Oth 08/15/18 12:02 Ordered Medication Administration Instruction [OM.PC] Q3H Oth 08/15/18 12:15 Ordered Peripheral IV Insertion Adult [OM.PC] Routine Oth 08/15/18 12:02 Ordered Resuscitation Status Routine Resus Stat 08/15/18 12:02 Ordered Medication Orders Butorphanol Tartrate (Stadol) 1 mg IVPUSH Q1H PRN PRN Reason: Pain Carboprost Tromethamine (Hemabate Ds) 250 mcg IM ASDIRECTED PRN PRN Reason: Post Hemorrhage Lactated Ringer's (Ringers, Lactated) 1,000 mls @ 150 mls/hr IV ASDIRECTED TRACY Oxytocin/Sodium Chloride (Oxytocin 30 Unit/500 Ml-Ns) 30 unit in 500 mls @ 555 mls/hr IV TITRATE TRACY Tranexamic Acid 1,000 mg/ (Sodium Chloride) 110 mls @ 660 mls/hr IV ONETIME PRN PRN Reason: Bleeding Oxytocin/Sodium Chloride (Oxytocin 30 Unit/500 Ml-Ns) 30 unit in 500 mls @ 2 mls/hr IV TITRATE TRACY; Protocol Lidocaine HCl (Xylocaine 1%) 50 ml INJECT ONETIME PRN PRN Reason: Laceration repair Methylergonovine Maleate (Methergine) 0.2 mg IM ASDIRECTED PRN PRN Reason: Post Hemorrhage Misoprostol (Cytotec) 200 mcg PO ONETIME PRN PRN Reason: Post Hemorrhage Misoprostol (Cytotec) 25 mcg VAG ONETIME PRN PRN Reason: Cervical Ripening Misoprostol (Cytotec) 25 mcg VAG Q4H PRN PRN Reason: Cervical Ripening Misoprostol (Cytotec) 25 mcg PO Q4H PRN PRN Reason: Cervical Ripening Misoprostol (Cytotec) 25 mcg PO ONETIME PRN PRN Reason: Cervical Ripening Nalbuphine HCl (Nubain) 10 mg IVPUSH Q1H PRN PRN Reason: Pain (severe 7-10) Ondansetron HCl (Zofran) 4 mg IV Q4H PRN PRN Reason: Nausea/Vomiting Sodium Chloride (Saline Flush) 10 ml FLUSH ASDIRECTED PRN PRN Reason: Keep Vein Open Sodium Chloride (Saline Flush) 2.5 ml FLUSH ASDIRECTED PRN PRN Reason: Keep Vein Open Sodium Chloride (Normal Saline) 10 ml IV ASDIRECTED PRN PRN Reason: IV Use Sterile Water (Sterile Water For Irrigation) 1,000 ml IRR ASDIRECTED PRN PRN Reason: delivery Terbutaline Sulfate (Brethine) 0.25 mg SUBCUT ASDIRECTED PRN PRN Reason: Tacysystole Assessment/Plan Comment:: Pt admitted for elective induction.
[2018-08-15] MEDS ORDERED: Bisacodyl 10 MG Supp RECTAL PRN (22:49)
[2018-08-15] MEDS ORDERED: Lanolin 100% Cream 7 GM Tube TOP PRN (22:49)
[2018-08-15] MEDS ORDERED: Ibuprofen 400 MG Tab PO PRN (22:49)
[2018-08-15] MEDS ORDERED: Acetaminophen 500 MG Tab PO PRN (22:49)
[2018-08-15] MEDS ORDERED: Benzocaine/Menthol 20%-0.5% Spray 78 GM Cannister TOP PRN (22:49)
[2018-08-15] MEDS ORDERED: Witch Hazel Medicated Pads 40/Jar TOP PRN (22:49)
--- NOTE | 2018-08-15 23:01 | PCM.DEL ---
L & D Note - General Info Date of Service: 08/15/18 Mother's Due Date: 08/10/18 - Delivery Note Labor: Spontaneous Cervical Ripening Method: Misoprostil Delivery Outcome: Livebirth Delivery Method: Spontaneous Vaginal Delivery-Single Infant Delivery Mode: Spontaneous Presentation: Vertex Anesthesia Type: None Amniotic Fluid Description: Bloody Episiotomy Type: None Laceration: None Placenta: Intact, Spontaneous Cord: 3 Vessels Resuscitation Needed: No [place]: Stimulated Score 1 min: 9 Score 5 min: 10 Second Stage Interventions: Reports: Pushing Effectively Delivery Comments (Free Text/Narrative):: of viable female, head delivered, shoulders and body followed easily. Infant with spont cry placed on mother abd with RN at bs. Delayed cord clamping , pitocin to IVF, cord clamped and cut by FOB. Placenta delivered grossly intact. Bimanual normal, clots evacuated. Inspection noted intact perineum. EBL 300cc. APGARS 9/10, Wt: 6lb 5oz. Mother and baby bonding well. - General Info Date of Service: 08/15/18 Admission Dx/Problem (Free Text): Patient Status Order with Admit Dx/Problem 08/15/18 12:02 Patient Status [ADT] Routine Admission Diagnosis/Problem Admission Diagnosis/Problem Functional Status: Reports: Pain Controlled, Tolerating Diet - Review of Systems General: Reports: No Symptoms HEENT: Reports: No Symptoms Pulmonary: Reports: No Symptoms Cardiovascular: Reports: No Symptoms Gastrointestinal: Reports: No Symptoms Genitourinary: Reports: No Symptoms Musculoskeletal: Reports: No Symptoms Skin: Reports: No Symptoms Neurological: Reports: No Symptoms Psychiatric: Reports: No Symptoms - Patient Data Weight - Most Recent: 96.162 kg Lab Results Last 24 Hours: Laboratory Results - last 24 hr 08/15/18 08/15/18 Range/Units 12:35 12:35 WBC 10.54 (4.0-11.0) K/uL RBC 3.93 L (4.30-5.90) M/uL Hgb 10.0 L (12.0-16.0) g/dL Hct 31.0 L (36.0-46.0) % MCV 78.9 L (80.0-98.0) fL MCH 25.4 L (27.0-32.0) pg MCHC 32.3 (31.0-37.0) g/dL RDW Std Deviation 44.5 (28.0-62.0) fl RDW Coeff of [place] 15 (11.0-15.0) % Plt Count 355 (150-400) K/uL MPV 9.20 (7.40-12.00) fL Nucleated RBC % 0.0 /100WBC Nucleated RBCs # 0 K/uL Blood Type A POSITIVE Antibody Screen NEGATIVE Med Orders - Current: Current Medications Acetaminophen (Tylenol Extra Strength) 500 mg PO Q4H PRN PRN Reason: Pain Acetaminophen (Tylenol Extra Strength) 1,000 mg PO Q4H PRN PRN Reason: Pain Benzocaine/Menthol (Dermoplast Pain Relief 20%-0.5% Delia) 78 gm TOP ASDIRECTED PRN PRN Reason: Perineal Comfort Measure Bisacodyl (Dulcolax) 10 mg RECTAL ONETIME PRN PRN Reason: Constipation Docusate Sodium (Colace) 100 mg PO BID PRN PRN Reason: Constipation Emollient Ointment (Lansinoh Hpa) 0 gm TOP ASDIRECTED PRN PRN Reason: Sore Nipples Oxytocin/Sodium Chloride (Oxytocin 30 Unit/500 Ml-Ns) 30 unit in 500 mls @ 2 mls/hr IV TITRATE TRACY; Protocol Ibuprofen (Motrin) 400 mg PO Q4H PRN PRN Reason: Pain Ibuprofen (Motrin) 800 mg PO Q6H PRN PRN Reason: Pain Misoprostol (Cytotec) 25 mcg VAG ONETIME PRN PRN Reason: Cervical Ripening Last Admin: 08/15/18 14:12 Dose: 25 mcg Misoprostol (Cytotec) 25 mcg VAG Q4H PRN PRN Reason: Cervical Ripening Misoprostol (Cytotec) 25 mcg PO Q4H PRN PRN Reason: Cervical Ripening Misoprostol (Cytotec) 25 mcg PO ONETIME PRN PRN Reason: Cervical Ripening Last Admin: 08/15/18 14:12 Dose: 25 mcg Oxycodone HCl (Oxycodone) 5 mg PO Q2H PRN PRN Reason: Pain Sodium Chloride (Saline Flush) 10 ml FLUSH ASDIRECTED PRN PRN Reason: Keep Vein Open Sodium Chloride (Saline Flush) 2.5 ml FLUSH ASDIRECTED PRN PRN Reason: Keep Vein Open Sodium Chloride (Normal Saline) 10 ml IV ASDIRECTED PRN PRN Reason: IV Use Terbutaline Sulfate (Brethine) 0.25 mg SUBCUT ASDIRECTED PRN PRN Reason: Tacysystole Witch Gabriela (Tucks) 1 pad TOP ASDIRECTED PRN PRN Reason: comfort care Discontinued Medications Butorphanol Tartrate (Stadol) 1 mg IVPUSH Q1H PRN PRN Reason: Pain Last Admin: 08/15/18 21:44 Dose: 1 mg Carboprost Tromethamine (Hemabate Ds) 250 mcg IM ASDIRECTED PRN PRN Reason: Post Hemorrhage Lactated Ringer's (Ringers, Lactated) 1,000 mls @ 150 mls/hr IV ASDIRECTED TRACY Oxytocin/Sodium Chloride (Oxytocin 30 Unit/500 Ml-Ns) 30 unit in 500 mls @ 555 mls/hr IV TITRATE TRACY Tranexamic Acid 1,000 mg/ (Sodium Chloride) 110 mls @ 660 mls/hr IV ONETIME PRN PRN Reason: Bleeding Lidocaine HCl (Xylocaine 1%) 50 ml INJECT ONETIME PRN PRN Reason: Laceration repair Methylergonovine Maleate (Methergine) 0.2 mg IM ASDIRECTED PRN PRN Reason: Post Hemorrhage Misoprostol (Cytotec) 200 mcg PO ONETIME PRN PRN Reason: Post Hemorrhage Nalbuphine HCl (Nubain) 10 mg IVPUSH Q1H PRN PRN Reason: Pain (severe 7-10) Ondansetron HCl (Zofran) 4 mg IV Q4H PRN PRN Reason: Nausea/Vomiting Sterile Water (Sterile Water For Irrigation) 1,000 ml IRR ASDIRECTED PRN PRN Reason: delivery - Exam General: Alert, Oriented, Cooperative, No Acute Distress Lungs: Normal Respiratory Effort (Female) Exam: Normal External Exam, Normal Bimanual Exam, Vaginal Bleeding Back Exam: Normal Inspection, Full Range of Motion Extremities: Normal Inspection, Normal Range of Motion, Non-Tender, No Pedal Edema Skin: Warm, Dry, Intact Neurological: No New Focal Deficit, Normal Speech, Normal Tone, Strength Equal Bilateral Psy/Mental Status: Alert, Normal Affect, Normal Mood - Problem List & Annotations (1) (normal spontaneous vaginal delivery) SNOMED Code(s): 12688050, 153110481 Code(s): O80 - ENCOUNTER FOR FULL-TERM UNCOMPLICATED DELIVERY Status: Acute Priority: High Current Visit: No (2) Supervision of normal IUP (intrauterine ) in multigravida SNOMED Code(s): 261559647, 202809285, 783879818 Code(s): Z34.80 - ENCOUNTER FOR SUPRVSN OF NORMAL , UNSP TRIMESTER Status: Acute Priority: High Current Visit: No Qualifiers: Trimester: third trimester Qualified Code(s): Z34.83 - Encounter for supervision of other normal , third trimester - Problem List Review Problem List Initiated/Reviewed/Updated: Yes - My Orders Last 24 Hours: My Active Orders 08/15/18 22:49 May Shower [RC] ASDIRECTED Up ad Saima [RC] ASDIRECTED Vital Signs [RC] PER UNIT ROUTINE Acetaminophen [Tylenol Extra Strength] 1,000 mg PO Q4H PRN Acetaminophen [Tylenol Extra Strength] 500 mg PO Q4H PRN Benzocaine/Menthol [Dermoplast Pain Relief 20%-0.5% Delia] 78 gm TOP ASDIRECTED PRN Bisacodyl [Dulcolax] 10 mg RECTAL ONETIME PRN Docusate Sodium [Colace] 100 mg PO BID PRN Ibuprofen [Motrin] 400 mg PO Q4H PRN Ibuprofen [Motrin] 800 mg PO Q6H PRN Lanolin [Lansinoh HPA] See Dose Instructions TOP ASDIRECTED PRN Witch Gabriela [Tucks] 1 pad TOP ASDIRECTED PRN oxyCODONE 5 mg PO Q2H PRN Assess Lochia [WOMSER] Per Unit Routine Assess Uterine Involution [WOMSER] Per Unit Routine Peripheral IV Discontinue [OM.PC] Routine Resuscitation Status Routine 08/15/18 22:51 Patient Status [ADT] Routine 08/16/18 Breakfast Regular Diet [DIET] - Plan Plan:: Pt admitted for elective induction. Delivery A: of viable female, APGARS 9/10, Wt: 6lb 5oz. Intact, EBL 300cc. Mother and baby stable P: Routine pp plan of care
[2018-08-15] MEDS: Acetaminophen 500 MG Tab PO PRN (23:03)
[2018-08-15] MEDS: oxyCODONE 5 MG Tab PO PRN (23:03)
[2018-08-15] MEDS: Docusate Sodium 100 MG Cap PO PRN (23:04)
[2018-08-16] MEDS: Ibuprofen 800 MG Tab PO PRN ×4 (02:29→23:11)
[2018-08-16] MEDS: oxyCODONE 5 MG Tab PO PRN ×4 (05:19→23:12)
--- NOTE | 2018-08-16 08:14 | PCM.PNPP ---
- General Info Date of Service: 08/16/18 Admission Dx/Problem (Free Text): Patient Status Order with Admit Dx/Problem 08/15/18 12:02 Patient Status [ADT] Routine Admission Diagnosis/Problem Admission Diagnosis/Problem Functional Status: Reports: Pain Controlled, Tolerating Diet, Ambulating, Urinating - Review of Systems General: Reports: No Symptoms HEENT: Reports: No Symptoms Pulmonary: Reports: No Symptoms Cardiovascular: Reports: No Symptoms Gastrointestinal: Reports: No Symptoms Genitourinary: Reports: No Symptoms Musculoskeletal: Reports: No Symptoms Skin: Reports: No Symptoms Neurological: Reports: No Symptoms Psychiatric: Reports: No Symptoms - General Info Date of Service: 08/16/18 - Patient Data Vital Signs - Most Recent: Last Vital Signs Temp 36.6 C 08/16/18 07:15 Pulse 94 08/16/18 07:15 Resp 17 08/16/18 07:15 BP 126/74 08/16/18 07:15 Pulse Ox 96 08/16/18 07:15 Weight - Most Recent: 96.162 kg Lab Results - Last 24 Hours: Laboratory Results - last 24 hr 08/15/18 08/15/18 Range/Units 12:35 12:35 WBC 10.54 (4.0-11.0) K/uL RBC 3.93 L (4.30-5.90) M/uL Hgb 10.0 L (12.0-16.0) g/dL Hct 31.0 L (36.0-46.0) % MCV 78.9 L (80.0-98.0) fL MCH 25.4 L (27.0-32.0) pg MCHC 32.3 (31.0-37.0) g/dL RDW Std Deviation 44.5 (28.0-62.0) fl RDW Coeff of [place] 15 (11.0-15.0) % Plt Count 355 (150-400) K/uL MPV 9.20 (7.40-12.00) fL Nucleated RBC % 0.0 /100WBC Nucleated RBCs # 0 K/uL Blood Type A POSITIVE Antibody Screen NEGATIVE Med Orders - Current: Current Medications Acetaminophen (Tylenol Extra Strength) 500 mg PO Q4H PRN PRN Reason: Pain Acetaminophen (Tylenol Extra Strength) 1,000 mg PO Q4H PRN PRN Reason: Pain Last Admin: 06/09/19 23:03 Dose: 1,000 mg Benzocaine/Menthol (Dermoplast Pain Relief 20%-0.5% [place]) 78 gm TOP ASDIRECTED PRN PRN Reason: Perineal Comfort Measure Last Admin: 08/15/18 23:06 Dose: 1 spray Bisacodyl (Dulcolax) 10 mg RECTAL ONETIME PRN PRN Reason: Constipation Docusate Sodium (Colace) 100 mg PO BID PRN PRN Reason: Constipation Last Admin: 08/15/18 23:04 Dose: 100 mg Emollient Ointment (Lansinoh Hpa) 0 gm TOP ASDIRECTED PRN PRN Reason: Sore Nipples Oxytocin/Sodium Chloride (Oxytocin 30 Unit/500 Ml-Ns) 30 unit in 500 mls @ 2 mls/hr IV TITRATE TRACY; Protocol Ibuprofen (Motrin) 400 mg PO Q4H PRN PRN Reason: Pain Ibuprofen (Motrin) 800 mg PO Q6H PRN PRN Reason: Pain Last Admin: 08/16/18 02:29 Dose: 800 mg Misoprostol (Cytotec) 25 mcg VAG ONETIME PRN PRN Reason: Cervical Ripening Last Admin: 08/15/18 14:12 Dose: 25 mcg Misoprostol (Cytotec) 25 mcg VAG Q4H PRN PRN Reason: Cervical Ripening Misoprostol (Cytotec) 25 mcg PO Q4H PRN PRN Reason: Cervical Ripening Misoprostol (Cytotec) 25 mcg PO ONETIME PRN PRN Reason: Cervical Ripening Last Admin: 08/15/18 14:12 Dose: 25 mcg Oxycodone HCl (Oxycodone) 5 mg PO Q2H PRN PRN Reason: Pain Last Admin: 08/16/18 05:19 Dose: 5 mg Sodium Chloride (Saline Flush) 10 ml FLUSH ASDIRECTED PRN PRN Reason: Keep Vein Open Sodium Chloride (Saline Flush) 2.5 ml FLUSH ASDIRECTED PRN PRN Reason: Keep Vein Open Sodium Chloride (Normal Saline) 10 ml IV ASDIRECTED PRN PRN Reason: IV Use Terbutaline Sulfate (Brethine) 0.25 mg SUBCUT ASDIRECTED PRN PRN Reason: Tacysystole Witch Gabriela (Tucks) 1 pad TOP ASDIRECTED PRN PRN Reason: comfort care Last Admin: 08/15/18 23:05 Dose: 1 pad Discontinued Medications Butorphanol Tartrate (Stadol) 1 mg IVPUSH Q1H PRN PRN Reason: Pain Last Admin: 08/15/18 21:44 Dose: 1 mg Carboprost Tromethamine (Hemabate Ds) 250 mcg IM ASDIRECTED PRN PRN Reason: Post Hemorrhage Lactated Ringer's (Ringers, Lactated) 1,000 mls @ 150 mls/hr IV ASDIRECTED TRACY Oxytocin/Sodium Chloride (Oxytocin 30 Unit/500 Ml-Ns) 30 unit in 500 mls @ 555 mls/hr IV TITRATE TRACY Last Admin: 08/15/18 22:54 Dose: 555 mls/hr Tranexamic Acid 1,000 mg/ (Sodium Chloride) 110 mls @ 660 mls/hr IV ONETIME PRN PRN Reason: Bleeding Lidocaine HCl (Xylocaine 1%) 50 ml INJECT ONETIME PRN PRN Reason: Laceration repair Methylergonovine Maleate (Methergine) 0.2 mg IM ASDIRECTED PRN PRN Reason: Post Hemorrhage Misoprostol (Cytotec) 200 mcg PO ONETIME PRN PRN Reason: Post Hemorrhage Nalbuphine HCl (Nubain) 10 mg IVPUSH Q1H PRN PRN Reason: Pain (severe 7-10) Ondansetron HCl (Zofran) 4 mg IV Q4H PRN PRN Reason: Nausea/Vomiting Sterile Water (Sterile Water For Irrigation) 1,000 ml IRR ASDIRECTED PRN PRN Reason: delivery Last Admin: 08/15/18 22:55 Dose: 1,000 ml - Infant Interaction Disposition, : in Room with Family Infant Interaction: Holding Feeding: Bottle Fed Infant Support Person: Significant Other - Recovery Exam Fundal Tone: Firm Fundal Level: 1 Fingerbreadths Below Umbilicus Fundal Placement: Midline Lochia Amount: Scant Lochia Color: Rubra/Red Perineum Description: Intact, Minimal Bruising/Swelling Episiotomy/Laceration: None Bladder Status: Voiding - Exam General: Alert, Oriented, Cooperative, No Acute Distress Lungs: Normal Respiratory Effort GI/Abdominal Exam: Soft, Non-Tender Extremities: Normal Range of Motion, Non-Tender, No Pedal Edema Skin: Warm, Dry, Intact Neurological: No New Focal Deficit, Normal Speech, Normal Tone, Strength Equal Bilateral Psy/Mental Status: Alert, Normal Affect, Normal Mood - Problem List & Annotations (1) (normal spontaneous vaginal delivery) SNOMED Code(s): 09373558, 965955067 Code(s): O80 - ENCOUNTER FOR FULL-TERM UNCOMPLICATED DELIVERY Status: Acute Priority: High Current Visit: No (2) Supervision of normal IUP (intrauterine ) in multigravida SNOMED Code(s): 606222661, 536074205, 392346058 Code(s): Z34.80 - ENCOUNTER FOR SUPRVSN OF NORMAL , UNSP TRIMESTER Status: Acute Priority: High Current Visit: No Qualifiers: Trimester: third trimester Qualified Code(s): Z34.83 - Encounter for supervision of other normal , third trimester - Problem List Review Problem List Initiated/Reviewed/Updated: Yes - My Orders Last 24 Hours: My Active Orders 08/15/18 22:49 May Shower [RC] ASDIRECTED Up ad Saima [RC] ASDIRECTED Vital Signs [RC] PER UNIT ROUTINE Acetaminophen [Tylenol Extra Strength] 1,000 mg PO Q4H PRN Acetaminophen [Tylenol Extra Strength] 500 mg PO Q4H PRN Benzocaine/Menthol [Dermoplast Pain Relief 20%-0.5% [place]] 78 gm TOP ASDIRECTED PRN Bisacodyl [Dulcolax] 10 mg RECTAL ONETIME PRN Docusate Sodium [Colace] 100 mg PO BID PRN Ibuprofen [Motrin] 400 mg PO Q4H PRN Ibuprofen [Motrin] 800 mg PO Q6H PRN Lanolin [Lansinoh HPA] See Dose Instructions TOP ASDIRECTED PRN Witch Gabriela [Tucks] 1 pad TOP ASDIRECTED PRN oxyCODONE 5 mg PO Q2H PRN Assess Lochia [WOMSER] Per Unit Routine Assess Uterine Involution [WOMSER] Per Unit Routine Peripheral IV Discontinue [OM.PC] Routine Resuscitation Status Routine 08/15/18 22:51 Patient Status [ADT] Routine 08/16/18 Breakfast Regular Diet [DIET] - Plan Plan:: Pt admitted for elective induction. Delivery A: of viable female, APGARS 9/10, Wt: 6lb 5oz. Intact, EBL 300cc. Mother and baby stable P: Routine pp plan of care PPD#1 A: VSS, AF, FF-2bu, lochia scant. Denies strong pain. Bottle fed baby P: continue pp POC. Discharge home in am
[2018-08-16] MEDS: Docusate Sodium 100 MG Cap PO PRN ×2 (08:27→20:24)
[2018-08-16] MEDS: Acetaminophen 500 MG Tab PO PRN ×2 (16:03→20:25)
[2018-08-17] MEDS: Ibuprofen 800 MG Tab PO PRN (06:29)
[2018-08-17] MEDS: Acetaminophen 500 MG Tab PO PRN ×2 (07:29→14:19)
[2018-08-17] MEDS: Docusate Sodium 100 MG Cap PO PRN (07:33)
--- NOTE | 2018-08-17 08:27 | PCM.DCSUM1 ---
Discharge Summary - Hospital Course Diagnosis: Stroke: No - Discharge Data Discharge Date: 08/17/18 Discharge Disposition: Home, Self-Care 01 Condition: Good - Patient Instructions Diet: Usual Diet as Tolerated Activity: As Tolerated Driving: Do Not Drive Showering/Bathing: May Shower Wound/Incision Care: Keep Operative Site/Wound Site Clean and Dry - Discharge Plan Home Medications: Home Meds FLUoxetine [PROzac] 1 tab PO DAILY 07/12/17 [History] Ondansetron HCl [Zofran] 1 tab PO Q6H PRN 07/12/17 [History] Vit Calc,Iron,Folic [ Vitamins] 1 tab PO DAILY 07/12/17 [ History] Referrals: [facility] [Outside] Claire Eisenberg CNM [Mid-] - 09/29/18 1:30 pm (6 week post ) - Discharge Summary/Plan Comment DC Time >30 min.: Yes - General Info Date of Service: 08/17/18 Functional Status: Reports: Pain Controlled - Review of Systems General: Reports: No Symptoms HEENT: Reports: No Symptoms Pulmonary: Reports: No Symptoms Cardiovascular: Reports: No Symptoms Gastrointestinal: Reports: No Symptoms Genitourinary: Reports: No Symptoms Musculoskeletal: Reports: No Symptoms Skin: Reports: No Symptoms Neurological: Reports: No Symptoms Psychiatric: Reports: No Symptoms - Patient Data Vitals - Most Recent: Last Vital Signs Temp 36.2 C 08/17/18 07:20 Pulse 84 08/17/18 07:20 Resp 16 08/17/18 07:20 BP 122/96 H 08/17/18 07:20 Pulse Ox 96 08/17/18 07:20 Weight - Most Recent: 96.162 kg Med Orders - Current: Current Medications Acetaminophen (Tylenol Extra Strength) 500 mg PO Q4H PRN PRN Reason: Pain Acetaminophen (Tylenol Extra Strength) 1,000 mg PO Q4H PRN PRN Reason: Pain Last Admin: 08/17/18 07:29 Dose: 1,000 mg Benzocaine/Menthol (Dermoplast Pain Relief 20%-0.5% Starbuck) 78 gm TOP ASDIRECTED PRN PRN Reason: Perineal Comfort Measure Last Admin: 08/15/18 23:06 Dose: 1 spray Bisacodyl (Dulcolax) 10 mg RECTAL ONETIME PRN PRN Reason: Constipation Docusate Sodium (Colace) 100 mg PO BID PRN PRN Reason: Constipation Last Admin: 08/17/18 07:33 Dose: 100 mg Emollient Ointment (Lansinoh Hpa) 0 gm TOP ASDIRECTED PRN PRN Reason: Sore Nipples Oxytocin/Sodium Chloride (Oxytocin 30 Unit/500 Ml-Ns) 30 unit in 500 mls @ 2 mls/hr IV TITRATE TRACY; Protocol Ibuprofen (Motrin) 400 mg PO Q4H PRN PRN Reason: Pain Ibuprofen (Motrin) 800 mg PO Q6H PRN PRN Reason: Pain Last Admin: 08/17/18 06:29 Dose: 800 mg Misoprostol (Cytotec) 25 mcg VAG ONETIME PRN PRN Reason: Cervical Ripening Last Admin: 08/15/18 14:12 Dose: 25 mcg Misoprostol (Cytotec) 25 mcg VAG Q4H PRN PRN Reason: Cervical Ripening Misoprostol (Cytotec) 25 mcg PO Q4H PRN PRN Reason: Cervical Ripening Misoprostol (Cytotec) 25 mcg PO ONETIME PRN PRN Reason: Cervical Ripening Last Admin: 08/15/18 14:12 Dose: 25 mcg Oxycodone HCl (Oxycodone) 5 mg PO Q2H PRN PRN Reason: Pain Last Admin: 08/16/18 23:12 Dose: 5 mg Sodium Chloride (Saline Flush) 10 ml FLUSH ASDIRECTED PRN PRN Reason: Keep Vein Open Sodium Chloride (Saline Flush) 2.5 ml FLUSH ASDIRECTED PRN PRN Reason: Keep Vein Open Sodium Chloride (Normal Saline) 10 ml IV ASDIRECTED PRN PRN Reason: IV Use Terbutaline Sulfate (Brethine) 0.25 mg SUBCUT ASDIRECTED PRN PRN Reason: Tacysystole Witch Gabriela (Tucks) 1 pad TOP ASDIRECTED PRN PRN Reason: comfort care Last Admin: 08/15/18 23:05 Dose: 1 pad Discontinued Medications Butorphanol Tartrate (Stadol) 1 mg IVPUSH Q1H PRN PRN Reason: Pain Last Admin: 08/15/18 21:44 Dose: 1 mg Carboprost Tromethamine (Hemabate Ds) 250 mcg IM ASDIRECTED PRN PRN Reason: Post Hemorrhage Lactated Ringer's (Ringers, Lactated) 1,000 mls @ 150 mls/hr IV ASDIRECTED [facility] Oxytocin/Sodium Chloride (Oxytocin 30 Unit/500 Ml-Ns) 30 unit in 500 mls @ 555 mls/hr IV TITRATE [facility] Last Admin: 08/15/18 22:54 Dose: 555 mls/hr Tranexamic Acid 1,000 mg/ (Sodium Chloride) 110 mls @ 660 mls/hr IV ONETIME PRN PRN Reason: Bleeding Lidocaine HCl (Xylocaine 1%) 50 ml INJECT ONETIME PRN PRN Reason: Laceration repair Methylergonovine Maleate (Methergine) 0.2 mg IM ASDIRECTED PRN PRN Reason: Post Hemorrhage Misoprostol (Cytotec) 200 mcg PO ONETIME PRN PRN Reason: Post Hemorrhage Nalbuphine HCl (Nubain) 10 mg IVPUSH Q1H PRN PRN Reason: Pain (severe 7-10) Ondansetron HCl (Zofran) 4 mg IV Q4H PRN PRN Reason: Nausea/Vomiting Sterile Water (Sterile Water For Irrigation) 1,000 ml IRR ASDIRECTED PRN PRN Reason: delivery Last Admin: 08/15/18 22:55 Dose: 1,000 ml - Exam General: Reports: Alert, Oriented HEENT: Reports: Pupils Equal, Pupils Reactive, EOMI, Mucous Membr. Moist/[place] Neck: Reports: Supple Lungs: Reports: Clear to Auscultation, Normal Respiratory Effort Cardiovascular: Reports: Regular Rate, Regular Rhythm GI/Abdominal Exam: Normal Bowel Sounds, Soft, Non-Tender, No Organomegaly, No Distention, No Abnormal Bruit, No Mass, Pelvis Stable (Female) Exam: Normal External Exam, Normal Speculum Exam, Normal Bimanual Exam Rectal (Female) Exam: Normal Exam, Normal Rectal Tone Back Exam: Reports: Normal Inspection, Full Range of Motion Extremities: Normal Inspection, Normal Range of Motion, Non-Tender, No Pedal Edema, Normal Capillary Refill Skin: Reports: Warm, Dry, Intact Wound/Incisions: Reports: Healing Well Neurological: Reports: No New Focal Deficit Psy/Mental Status: Reports: Alert, Normal Affect, Normal Mood
== END 2018-08-17 15:30 | disposition home or self-care (01) | DRG 807 ==
LOC: MW.OB 11:48 → OBSVTOIN 22:28 → MW.OB 22:28
PROVIDERS: ADMIT Obstetrics & Gynecology; ATTEND Obstetrics & Gynecology
PROC: 10E0XZZ Delivery of Products of Conception, External Approach (ICD-10-PCS; principal; 2018-08-15)
DX: O48.0 Post-term pregnancy (principal); O99.334 Smoking (tobacco) complicating childbirth; F17.210 Nicotine dependence, cigarettes, uncomplicated; Z3A.40 40 weeks gestation of pregnancy; Z37.0 Single live birth
CPT/HCPCS: 36415; 59025; 59409; 85027; 86850; 86900; 86901; A9270-GY; J0595; J2590

== ENCOUNTER 2019-01-02 11:35 | Emergency (ER) | payer MEDICAID ==
--- NOTE | 2019-01-02 12:41 | EDM.PDOC ---
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 Patient states this is the fourth month she has been on a control pill and she only takes it periodically. Patient states she doesn't take the pill at the same time every day and has skipped multiple days in a row before remembering to take it again. Patient states she did skip a few pills and is now bleeding again for the second time this month. Patient states she is also having some lower abdominal pain that radiates to her low back. Patient denies any trauma or injury. Patient states she did have a vaginal delivery 4 months ago which she states was uncomplicated. Patient states she did have her 6 month visit with Claire Eisenberg which was routine without complication. Patient denies any other symptoms or concerns. Patient denies fever, chills, chest pain, shortness of breath, or cough. Denies headache, neck stiff ness, change in vision, syncope, or near syncope. Denies nausea, vomiting, diarrhea, constipation, or dysuria. Has not noted any blood in urine or stool. Patient has been eating and drinking appropriately. Review of systems: As per history of present illness and below otherwise all systems reviewed and negative. Past medical history: As per history of present illness and as reviewed below otherwise noncontributory. Surgical history: As per history of present illness and as reviewed below otherwise noncontributory. Social history: See social history for further information Family history: As per history of present illness and as reviewed below otherwise noncontributory. Physical exam: General: Patient is alert, oriented, and in no acute distress. Patient laying comfortably on exam table. HEENT: Atraumatic, normocephalic, pupils equal and reactive bilaterally, negative for conjunctival pallor or scleral icterus, mucous membranes moist, TMs normal bilaterally, throat clear, neck supple, nontender, trachea midline. No drooling or trismus noted. No meningeal signs. No hot potato voice noted. Lungs: Clear to auscultation, breath sounds equal bilaterally, chest nontender. Heart: S1S2, regular rate and rhythm without overt murmur Abdomen: Soft, nondistended, mild-moderate suprapubic tenderness. Negative for masses or hepatosplenomegaly. Negative for costovertebral tenderness. Pelvis: Stable nontender. Genitourinary: SKA care assistant at bedside. External genitalia grossly unremarkable. Mild-Moderate amount of bright red blood in vaginal vault. Negative cervical motion tenderness. Uterus is approximately 6 to 8 weeks in size and non tender to palpation. Rectal: Deferred. Skin: Intact, warm, dry. No lesions or rashes noted. Extremities: Atraumatic, negative for cords or calf pain. Neurovascular unremarkable. Neuro: Awake, alert, oriented. Cranial nerves II through XII unremarkable. Cerebellum unremarkable. Motor and sensory unremarkable throughout. Exam nonfocal. Notes: Discussed the importance for follow-up with a primary care provider and YOU[employer]ATION SUPPORT WORKER provider. Voices understanding and is agreeable to plan of care. Denies any further questions or concerns at this time. Diagnostics: CBC, CMP, UA, Uhcg, Abd/Pelvic CT, affirm, G&C, TVUS Therapeutics: None Prescription: None Impression: Abnormal vaginal bleeding Constipation Lower abdominal pain, unspecified Plan: 1. You can alternate ibuprofen and Tylenol as directed for pain and discomfort. 2. Drink one half bottle of magnesium citrate,over the counter medication tonight. If you are unable to have a bowel movement by tomorrow morning, drink the other one half bottle. 3. Follow up with her primary care provider as well as her YOUTH ACCOMMODATION SUPPORT WORKER/womens health provider as discussed. 4. Return to the ED as needed and as discussed. Definitive disposition and diagnosis as appropriate pending reevaluation and review of above. low back Pain Score (Numeric/FACES): 8 low abd Pain Score (Numeric/FACES): 6 - Related Data Allergies Allergy/AdvReac Type Severity Reaction Status Date / Time No Known Allergies Allergy Verified 01/02/19 11:44 Home Meds: Home Meds . [No Known Home Meds] 01/02/19 [History] Past Medical History - Past Health History Medical/Surgical History: Denies Medical/Surgical History Cardiovascular History: Reports: Syncope YOU[employer]ATION SUPPORT WORKER History: Reports: Other YOU[employer] ACC[employer]MODATION SUPPORT WORKER History: 16 weeks gestation, has had some vaginal discharge and spotting throughout the . - Infectious Disease History Infectious Disease History: Reports: Chicken Pox - Past Surgical History HEENT Surgical History: Reports: Adenoidectomy Social & Family History - Family History Family Medical History: Noncontributory - Tobacco Use Smoking Status *Q: Current Every Day Smoker Years of Tobacco use: 11 Packs/Tins Daily: 0.5 - Caffeine Use Caffeine Use: Reports: None - Recreational Drug Use Recreational Drug Use: No ED ROS GENERAL - Review of Systems Review Of Systems: ROS reveals no pertinent complaints other than HPI. ED EXAM, GENERAL - Physical Exam Exam: See Below (See dictation) Course - Vital Signs Last Recorded V/S: Last Vital Signs Temp 97.1 F 01/02/19 11:41 Pulse 88 01/02/19 11:41 Resp 18 01/02/19 11:41 BP 158/120 H 01/02/19 11:41 Pulse Ox 99 01/02/19 11:41 - Orders/Labs/Meds Orders: Active Orders 24 hr Category Date Time Status CHLAMYDIA AND GONORRHEA BY TMA Stat Lab 01/02/19 11:56 Received CULTURE URINE [RM] Stat Lab 01/02/19 11:56 Received Labs: Laboratory Tests 01/02/19 01/02/19 01/02/19 Range/Units 11:56 11:56 12:27 WBC 7.74 (4.0-11.0) K/uL RBC 4.78 (4.30-5.90) M/uL Hgb 12.5 (12.0-16.0) g/dL Hct 37.4 (36.0-46.0) % MCV 78.2 L (80.0-98.0) fL MCH 26.2 L (27.0-32.0) pg MCHC 33.4 (31.0-37.0) g/dL RDW Std Deviation 47.2 (28.0-62.0) fl RDW Coeff of Toy[place] 17 H (11.0-15.0) % Plt Count 350 (150-400) K/uL MPV 8.30 (7.40-12.00) fL Neut % (Auto) 65.7 (48.0-80.0) % Lymph % (Auto) 23.8 (16.0-40.0) % [place] % (Auto) 6.5 (0.0-15.0) % Eos % (Auto) 3.7 (0.0-7.0) % Baso % (Auto) 0.3 (0.0-1.5) % Neut # (Auto) 5.1 (1.4-5.7) K/uL Lymph # (Auto) 1.8 (0.6-2.4) K/uL [place] # (Auto) 0.5 (0.0-0.8) K/uL Eos # (Auto) 0.3 (0.0-0.7) K/uL Baso # (Auto) 0.0 (0.0-0.1) K/uL Nucleated RBC % 0.0 /100WBC Nucleated RBCs # 0 K/uL Sodium (136-145) mmol/L Potassium (3.5-5.1) mmol/L Chloride (98-107) mmol/L Carbon Dioxide (21.0-32.0) mmol/L BUN (7.0-18.0) mg/dL Creatinine (0.6-1.0) mg/dL Est Cr Clr Drug Dosing mL/min Estimated GFR (MDRD) ml/min Glucose (74-106) mg/dL Calcium (8.5-10.1) mg/dL Total Bilirubin (0.2-1.0) mg/dL AST (15-37) IU/L ALT (14-63) IU/L Alkaline Phosphatase (46-116) U/L Total Protein (6.4-8.2) g/dL Albumin (3.4-5.0) g/dL Globulin (2.6-4.0) g/dL Albumin/Globulin Ratio (0.9-1.6) Lipase (73-393) U/L Urine Color YELLOW Urine Appearance SLT CLOUDY Urine pH 6.0 (5.0-8.0) Ur Specific [place] 1.015 (1.001-1.035) Urine Protein NEGATIVE (NEGATIVE) mg/dL Urine Glucose (UA) NEGATIVE (NEGATIVE) mg/dL Urine Ketones NEGATIVE (NEGATIVE) mg/dL Urine Occult Blood LARGE H (NEGATIVE) Urine Nitrite NEGATIVE (NEGATIVE) Urine Bilirubin NEGATIVE (NEGATIVE) Urine Urobilinogen 0.2 (<2.0) EU/dL Ur Leukocyte Esterase SMALL H (NEGATIVE) Urine RBC 30-40 (0-2/HPF) Urine WBC 0-2 (0-5/HPF) Ur Epithelial Cells OCCASIONAL (NONE-FEW) Urine Bacteria FEW (NEGATIVE) Urine HCG, Qual NEGATIVE (NEGATIVE) [place] species DNA (NEGATIVE) Gardnerella DNA Probe (NEGATIVE) Trichomonas DNA Probe (NEGATIVE) 01/02/19 01/02/19 Range/Units 12:27 12:52 WBC (4.0-11.0) K/uL RBC (4.30-5.90) M/uL Hgb (12.0-16.0) g/dL Hct (36.0-46.0) % MCV (80.0-98.0) fL MCH (27.0-32.0) pg MCHC (31.0-37.0) g/dL RDW Std Deviation (28.0-62.0) fl RDW Coeff of [place] (11.0-15.0) % Plt Count (150-400) K/uL MPV (7.40-12.00) fL Neut % (Auto) (48.0-80.0) % Lymph % (Auto) (16.0-40.0) % [place] % (Auto) (0.0-15.0) % Eos % (Auto) (0.0-7.0) % Baso % (Auto) (0.0-1.5) % Neut # (Auto) (1.4-5.7) K/uL Lymph # (Auto) (0.6-2.4) K/uL [place] # (Auto) (0.0-0.8) K/uL Eos # (Auto) (0.0-0.7) K/uL Baso # (Auto) (0.0-0.1) K/uL Nucleated RBC % /100WBC Nucleated RBCs # K/uL Sodium 140 (136-145) mmol/L Potassium 3.7 (3.5-5.1) mmol/L Chloride 106 (98-107) mmol/L Carbon Dioxide 25.4 (21.0-32.0) mmol/L BUN 8 (7.0-18.0) mg/dL Creatinine 0.7 (0.6-1.0) mg/dL Est Cr Clr Drug Dosing 111.01 mL/min Estimated GFR (MDRD) > 60.0 ml/min Glucose 82 (74-106) mg/dL Calcium 8.5 (8.5-10.1) mg/dL Total Bilirubin 0.5 (0.2-1.0) mg/dL AST 11 L (15-37) IU/L ALT 19 (14-63) IU/L Alkaline Phosphatase 50 (46-116) U/L Total Protein 7.5 (6.4-8.2) g/dL Albumin 3.4 (3.4-5.0) g/dL Globulin 4.1 H (2.6-4.0) g/dL Albumin/Globulin Ratio 0.8 L (0.9-1.6) Lipase 82 (73-393) U/L Urine Color Urine Appearance Urine pH (5.0-8.0) Ur Specific [place] (1.001-1.035) Urine Protein (NEGATIVE) mg/dL Urine Glucose (UA) (NEGATIVE) mg/dL Urine Ketones (NEGATIVE) mg/dL Urine Occult Blood (NEGATIVE) Urine Nitrite (NEGATIVE) Urine Bilirubin (NEGATIVE) Urine Urobilinogen (<2.0) EU/dL Ur Leukocyte Esterase (NEGATIVE) Urine RBC (0-2/HPF) Urine WBC (0-5/HPF) Ur Epithelial Cells (NONE-FEW) Urine Bacteria (NEGATIVE) Urine HCG, Qual (NEGATIVE) [place] species DNA NEGATIVE (NEGATIVE) Gardnerella DNA Probe NEGATIVE (NEGATIVE) Trichomonas DNA Probe NEGATIVE (NEGATIVE) Departure - Departure Time of Disposition: 15:02 Disposition: Home, Self-Care 01 Clinical Impression: Abnormal vaginal bleeding Constipation Qualifiers: Constipation type: unspecified constipation type Qualified Code(s): K59.00 - Constipation, unspecified Abdominal pain Qualifiers: Abdominal location: lower abdomen, unspecified Qualified Code(s): R10.30 - Lower abdominal pain, unspecified - Discharge Information Referrals: PCP,None [Primary Care Provider] - Forms: ED Department Discharge Additional Instructions: The following information is given to patients seen in the emergency department who are being discharged to home. This information is to outline your options for follow-up care. We provide all patients seen in our emergency department with a follow-up referral. The need for follow-up, as well as the timing and circumstances, are variable depending upon the specifics of your emergency department visit. If you don't have a primary care physician on staff, we will provide you with a referral. We always advise you to contact your personal physician following an emergency department visit to inform them of the circumstance of the visit and for follow-up with them and/or the need for any referrals to a consulting specialist. The emergency department will also refer you to a specialist when appropriate. This referral assures that you have the opportunity for follow-up care with a specialist. All of these measure are taken in an effort to provide you with optimal care, which includes your follow-up. Under all circumstances we always encourage you to contact your private physician who remains a resource for coordinating your care. When calling for follow-up care, please make the office aware that this follow-up is from your recent emergency room visit. If for any reason you are refused follow-up, please contact the [facility] Emergency Department at and asked to speak to the emergency department charge nurse. [facility] [address] [place] [address] [place] [address] 1. You can alternate ibuprofen and Tylenol as directed for pain and discomfort. 2. Drink one half bottle of magnesium citrate,over the counter medication tonight. If you are unable to have a bowel movement by tomorrow morning, drink the other one half bottle. 3. Follow up with her primary care provider as well as her YOUTH ACCOMMODATION SUPPORT WORKER/womens health provider as discussed. 4. Return to the ED as needed and as discussed. - My Orders Last 24 Hours: My Active Orders 01/02/19 11:56 CHLAMYDIA AND GONORRHEA BY TMA Stat CULTURE URINE [RM] Stat - Assessment/Plan Last 24 Hours: My Active Orders 01/02/19 11:56 CHLAMYDIA AND GONORRHEA BY TMA Stat CULTURE URINE [] Stat
[2019-01-02 13:05] LABS: BLOOD UREA NITROGEN,BUN 8 mg/dL (7.0-18.0); CARBON DIOXIDE,CO2 25.4 mmol/L (21.0-32.0); CHLORIDE,CL 106 mmol/L (98-107); GLUCOSE RANDOM 82 mg/dL (74-106); LIPASE 82 U/L (73-393); POTASSIUM,K 3.7 mmol/L (3.5-5.1); SODIUM,NA 140 mmol/L (136-145)
--- NOTE | 2019-01-02 13:50 | CT ---
INDICATION: Complaining of lower abdominal and back pain. Heavy vaginal bleeding for 4 days. Vaginal delivery 4 months ago. TECHNIQUE: CT abdomen and pelvis performed without oral or IV contrast. FINDINGS: Mild single small stones in each kidney measuring up to 6-7 mm in the left kidney. No ureteral calculi. The uterus is globular in shape and mildly thick the enlarged. The endometrium cannot be assessed without IV contrast. Specifically the endometrium cannot be discerned from the myometrium without IV contrast. Pelvic ultrasound could better assess the vaginal bleeding and endometrium. Increased number of small to slightly prominent bilateral inguinal lymph nodes likely reactive in nature. Tiny periumbilical anterior pelvic wall hernia. Moderate amounts of stool in the colon especially in the distal colon and rectum. Remainder negative. IMPRESSION: 1. No acute disease in abdomen or pelvis. 2. Without IV contrast with the endometrial stripe cannot be discerned from the myometrium. The uterus is mildly enlarged and globular in shape. Consider pelvic ultrasound to confirm the endometrium is normal given the presence of vaginal bleeding. 3. Moderate amount of stool in the colon rectum. 4. Single bilateral renal stones. Please note that all CT scans at this facility use dose modulation, iterative reconstruction, and/or weight-based dosing when appropriate to reduce radiation dose to as low as reasonably achievable. Dictated by Sundeep Dodson MD @ Jan 02 2019 1:42PM Signed by Dr. Sundeep Dodson @ Jan 02 2019 1:49PM
--- NOTE | 2019-01-02 14:58 | US ---
INDICATION: Bleeding and pain TECHNIQUE: Ultrasound pelvis transvaginal for better assessment or to better visualize the endometrium. Real-time sonographic images with spectral and color Doppler imaging of the ovaries were obtained. COMPARISON: CT abdomen pelvis January 02, 2019 FINDINGS: Uterus: 9 x 5 x 5 cm. Normal echotexture of the myometrium. No masses. Endometrium: Transvaginal imaging was performed to better evaluate the endometrium. Endometrial thickness measures 10 mm. No sign of endometrial mass or fluid. Right ovary measures 3 x 3 x 2 cm and left ovary measures 3 x 2 x 2 cm. No suspicious ovarian or adnexal masses. Normal arterial and venous blood flow is demonstrated in both ovaries. Cul-de-sac: No significant free fluid. IMPRESSION: Unremarkable pelvic ultrasound. No finding to explain bleeding or pain. Dictated by Prem Peralta MD @ Jan 02 2019 2:54PM Signed by Dr. Prem Peralta @ Jan 02 2019 2:57PM
== END 2019-01-02 15:10 | disposition home or self-care (01) ==
LOC: MW.ED 11:35
DX: N93.9 Abnormal uterine and vaginal bleeding, unspecified (principal); K59.00 Constipation, unspecified; R10.30 Lower abdominal pain, unspecified; F17.210 Nicotine dependence, cigarettes, uncomplicated
CPT/HCPCS: 36415; 74176; 74176-26; 76830; 76830-26; 80053; 81001; 81025; 83690; 85025; 87086; 87480; 87491; 87510; 87591; 87660; 99283; 99284-25